=== PATIENT | male | born 1945 | race Caucasian/White ===

== ENCOUNTER 2019-09-21 11:09 | Outpatient (CLI) | payer MEDICARE, SELFPAY ==
[2019-09-21 11:51] LABS: Basophils Percent Auto 0.2 % (0.2-1.2); Eosinophils Absolute Auto 0.2 K/mm3 (0-0.3); Hematocrit 36.8 % (42.0-52.0); Hemoglobin 12.7 g/dL (14.0-18.0); Immature Granulocyte Absolute 0.01 K/mm3 (0.00-0.031); Immature Granulocyte Percent A 0.2 % (0-0.5); Lymphocytes Absolute Auto 2.57 K/mm3 (0.9-3.2); Lymphocytes Percent Auto 57.8 % (18.3-44.2); Mean Corpuscular HGB Conc 34.5 g/dl (32-36); Mean Corpuscular Hemoglobin 39.6 pg (26-34); Mean Corpuscular Volume 114.6 fl (80-100); Mean Platelet Volume 11.9 fl (7.4-10.4); Monocytes Absolute Auto 0.5 K/mm3 (0.1-0.6); Neutrophils Absolute Auto 1.2 K/mm3 (1.3-6.7); Neutrophils Percent Auto 26.8 % (45.5-73.1); Platelet Count Result 147 k/mm3 (150-375); Red Blood Count 3.21 M/mm3 (4.6-6.20); Red Cell Distribution Width 14.8 % (11.5-14.5); White Blood Count 4.5 K/mm3 (4.5-10.0)
[2019-09-21 12:00] LABS: Prothrombin Time 13.1 Seconds (11.1-14.7)
[2019-09-21 12:05] LABS: Alanine Aminotransferase 25 U/L (4-50); Albumin Level 4.5 g/dL (3.5-5.1); Alkaline Phosphatase 52 U/L (38-126); Aspartate Amino Transferase 28 U/L (17-59); Bilirubin,Total 0.6 mg/dL (0.2-1.3); Blood Urea Nitrogen 17 mg/dL (9-20); Carbon Dioxide 27 mmol/L (22-30); Chloride 105 mmol/L (98-107); Estimated Glomerular Filt Rate 59; Glucose 121 mg/dL (75-110); Potassium 4.3 mmol/L (3.4-5.0); Sodium 141 mmol/L (137-145)
== END 2019-09-21 11:10 | disposition home or self-care (01) ==
LOC: ANHLAB 11:18
PROVIDERS: PCP Family Medicine; Visit Provider Internal Medicine Cardiovascular Disease
DX: Z01.810 Encounter for preprocedural cardiovascular examination (principal); I25.119 Atherosclerotic heart disease of native coronary artery with unspecified angina pectoris; R06.00 Dyspnea, unspecified
CPT/HCPCS: 36415; 80053; 85025; 85610

== ENCOUNTER 2019-09-23 06:08 | Outpatient (CLI) | payer MEDICARE, SELFPAY ==
[2019-09-23 17:27] LABS: SARS-CoV-2 RNA PCR Negative
== END 2019-09-23 06:09 | disposition home or self-care (01) ==
LOC: ANHCOVIDDT 06:08
PROVIDERS: PCP Family Medicine; Visit Provider Internal Medicine Cardiovascular Disease
DX: Z01.812 Encounter for preprocedural laboratory examination (principal); Z11.59 Encounter for screening for other viral diseases
CPT/HCPCS: 87635; C9803; U0003

== ENCOUNTER 2019-09-26 06:53 | Day surgery (SDC) | payer MEDICARE, SELFPAY ==
[2019-09-25 18:24] VITALS: BMI 28.0
[2019-09-26] VITALS (15 sets, daily range): BP systolic 112–154; BP diastolic 62–83; PULSE 54–66; RESP 14–18; TEMP 36.7; O2SAT 95–100
--- NOTE | 2019-09-26 09:13 | WPDMODSED ---
Moderate Sedation Note-Pt Data Patient Data Allergies Allergy/AdvReac Type Severity Reaction Status Date / Time niacin AdvReac Nausea and Verified 09/25/19 18:23 Vomiting quinine AdvReac Dizziness Verified 09/25/19 18:23 Home Medications Medication Instructions Recorded Confirmed Type acetaminophen [Tylenol] 325 mg PO ONCE PRN 09/25/19 09/25/19 History alprazolam [Xanax] 0.5 mg PO TID 09/25/19 09/26/19 History aspirin 81 mg PO DAILY 09/25/19 09/26/19 History atorvastatin [Lipitor] 40 mg PO HS 09/25/19 09/26/19 History clopidogrel [Plavix] 75 mg PO DAILY 09/25/19 09/26/19 History folic acid 0.8 mg PO DAILY 09/25/19 09/25/19 History isosorbide mononitrate 60 mg PO DAILY 09/25/19 09/26/19 History losartan [Cozaar] 50 mg PO DAILY 09/25/19 09/26/19 History metoprolol tartrate [Lopressor] 50 mg PO Q12H 09/25/19 09/26/19 History mvoaukyi-qoz-ZG-lycopen-lutein 1 tablet PO DAILY 09/25/19 09/26/19 History [Centrum Silver] pantoprazole [Protonix] 40 mg PO QAM 09/25/19 09/26/19 History vitamin E 400 unit PO DAILY 09/25/19 09/26/19 History Current Medications: Active Medications Sodium Chloride (Normal Saline Iv) 500 mls @ 100 mls/hr IV CONT .Q5H [facility] Sedation/Anesthesia: No previous sedation/anesthesia problems (including family history). [facility] Social History Social History Smoking status: Former smoker Tobacco type: cigarettes Second hand tobacco smoke exposure: Yes Alcohol intake: former Substance use: never Living arrangements: with family Gender identity (if verbalized by the patient): Male Spiritual care concerns: No Mod Sed Physical Exam Physical Exam Pre Procedural Exam: Normal: Airway Hours since solid foods: 10 Hours since liquid intake: 10 Internal Medicine - PN: Obj Da Vital Signs Vital Signs: Vital Signs - 24 hr 09/26/19 07:13 Pulse Rate 59 L Respiratory Rate 17 Blood Pressure 152/80 H Pulse Oximetry 97 Meds/Results Medications: Active Medications Generic Name Dose Route Start Last Admin Trade Name Freq PRN Reason Stop Dose Admin Sodium Chloride 500 mls @ 100 mls/hr 09/26/19 06:35 Normal Saline Iv IV CONT .Q5H [facility] ASA Classification/Sedation ASA Classification/Sedation Risks: Risks, benefits and alternatives explained and patient/family accepted plan for sedation. Patient re-evaluated immediately prior to sedation.
--- NOTE | 2019-09-26 09:13 | WPDHPUPDATE1 ---
History and Physical Update Update Date/Time: 09/26/19 09:13 History and Physical has been reviewed, including an updated exam of the patient. There are NO changes in the patient's condition. Risks, benefits, and alternatives have been discussed and questions answered. Patient agrees to proceed with procedure.
--- NOTE | 2019-09-26 10:15 | SUR.PHASEII ---
BEGIN PHASE II RECOVERY. RETURNS TO [facility] S/P L/RHC W/ DR. DYER. AWAKE AND ALERT ON ARRIVAL. DENIES PAIN OR SOB. RFA PUNCTURE SITE CLOSED W/ ANGIOSEAL. 7FR VENOUS SHEATH SUTURED IN PLACE IN RFV. R. GROIN SOFT, NONTENDER, NO BLEEDING OR HEMATOMA NOTED. GUAZE DRESSING C/D/I OVER PUNCTURE SITES R. GROIN. R. PEDAL PULSE STRONG. SENSATION, MOVEMENT, COLOR R. FOOT WNL. REVIEWED BEDREST ACTIVITY RESTRICTIONS W/ PT AND . VOICED UNDERSTANDING OF ALL. MONITOR SB/SR W/ BBB. VSS. WILL CONTINUE TO MONITOR.
--- NOTE | 2019-09-26 10:29 | WPDCARDPROC ---
Cardiac Cath Procedure Note Date of procedure:: 09/26/19 Performing physician:: Jordan Reid MD Procedure Procedure note:: RIGHT AND LEFT HEART CATHETERIZATION AND PERCUTANEOUS CORONARY INTERVENTION REPORT DATE OF PROCEDURE: 09/26/2019 INDICATION FOR PROCEDURE: Worsening shortness of breath, known CAD, history of PCI/ stent placements BRIEF CLINICAL HISTORY: 74-year-old male with known CAD, history of PCI/ stent placement ( 4.0 x 16 mm, 3.0 x 16 mm overlapping stents in the proximal LAD on 05/19/2016), PAD, chronic left bundle-branch block, hypertension, dyslipidemia. Patient was referred by Dr. Landeros for right and left heart catheterization in the setting of worsening shortness of breath. Benefits and risks of the procedure were discussed with the patient in depth, and informed consent was obtained prior to the procedure. Risks of the procedure include but are not limited to vascular complications including groin hematoma, retroperitoneal bleed, vessel perforation; periprocedural FL, cardiac arrhythmias, stroke, contrast induced nephropathy, and . After discussing all the benefits, risks and alternatives, patient was willing to proceed with the procedure. PROCEDURES PERFORMED: 1. Left heart catheterization- Selective left and right coronary angiogram; left ventriculogram and hemodynamic assessment 2. Right heart catheterization with hemodynamic assessment 3. Percutaneous coronary intervention- Intravascular ultrasound (IVUS) of distal left main 4. Selective right common femoral angiogram and deployment of Angio-Seal hemostatic device 5. Moderate sedation-CPT code 82262 MODERATE SEDATION: Midazolam 2 mg; fentanyl 50 mcg. Start time 0920 , Stop time 1000 ; Total [id number] time 40 minutes; Sharon Cooney RN was trained observer for moderate sedation. ACCESS SITE: Right common femoral artery PROCEDURE NOTE: After obtaining informed consent, patient was brought to catheterization lab and prepped and draped in a usual sterile manner. After local anesthesia with lidocaine, right common femoral artery access was taken with micropuncture needle followed by insertion of a 5 Samoan sheath. Right common femoral venous access were taken with micropuncture needle followed by insertion of a 7 Samoan sheath. Right heart catheterization was performed using C Ladson-Sharmila catheter under fluoroscopic guidance. Pressures were measured in the RA, RV, pulmonary artery and pulmonary capillary. O2 saturations were taken from RA, RV, pulmonary artery, and femoral artery. After completion of right heart catheterization, attention was shifted to the left heart catheterization. Selective left and right coronary angiogram was performed using 5 Samoan JL4 and JR4 catheters respectively. Orthogonal views were taken. Next, a 5 Samoan pigtail catheter was advanced in the LV cavity and was flushed with normal saline. LV pressure measurement was performed. After this, left ventriculogram was performed. The catheter was flushed again, and gradient across the aortic valve was measured on the pullback of the catheter. Selective right common femoral angiogram was performed after PCI followed by successful deployment of Angio-Seal vascular closure device. Patient tolerated procedure well without any immediate procedure related complications. FINDINGS: LEFT HEART CATHETERIZATION: LEFT MAIN CORONARY: The left main coronary artery is a medium to large caliber vessel with about 30% stenosis in the mid segment and high-grade 70-80% stenosis in the distal most segment before vessel bifurcates into LAD and left circumflex branches. The stenosis was best visualized in the VENTURA 29 and caudall 18 projection. As described below, the distal left main stenosis was confirmed on the intravascular ultrasound. LEFT ANTERIOR DESCENDING ARTERY: Multiple stents are seen in the proximal LAD which are patent without significant normal loss. There is mild 20-40% stenosis distal
--- NOTE | 2019-09-26 12:12 | SUR.PHASEII ---
BEDREST X 2 HOURS COMPLETED POST ANGIOMAX RECEIVED IN CCL DURING R/LHC. 7FR VENOUS SHEATH PULLED INTACT PER PROTOCOL FROM R. FEM VEIN AFTER SUTURE REMOVED. FIRM MANUAL PRESSURE TO SITE TO BE HELD UNTIL HEMOSTASIS. TOLERATED WELL. VSS.
--- NOTE | 2019-09-26 12:27 | SUR.PHASEII ---
HEMOSTASIS ACHIEVED TO R. FEM VEIN PUNCTURE SITE AFTER 15 MINUTES MANUAL PRESSURE HOLD. TOLERATED WELL. SITE SOFT, NONTENDER. NO BLEEDING OR OOZE NOTED. VERY SMALL BRUISE NOTED AT PUNCTURE SITE. SITE DRESSED W/ FOLDED 4X4 AND TEGADERM. R. FEM ARTERIAL SITE REMAINS SOFT, NONTENDER. NO BLEEDING OR HEMATOMA NOTED. ARTERIAL SITE DRESSED W/ STAT SEAL AND TEGADERM. CONTINUED BEDREST ACTIVITY RESTRICTIONS REVIEWED W/ PT. AND . WILL CONTINUE BEDREST S/P R. FEM VEIN SHEATH PULL X 1 HOUR. VSS. WILL CONTINUE TO MONITOR.
--- NOTE | 2019-09-26 13:30 | SUR.PHASEII ---
BEDREST X 1 HOUR POST R. FEM VENOUS SHEATH PULL COMPLETE. UP TO DANGLE BEDSIDE, AMBULATED TO BATHROOM TO VOID WITHOUT DIFFICULTY, RETURNED TO RECLINER CHAIR AT BEDSIDE. TOLERATED WELL. R. GROIN ARTERIAL AND VENOUS PUNCTURE SITES REMAIN SOFT, NONTENDER, NO BLEEDING OR HEMATOMA NOTED. DRESSING C/D/I. R. PEDAL PULSE REMAINS STRONG. VSS. WILL CONTINUE TO MONITOR. LUNCH TRAY SERVED.
--- NOTE | 2019-09-26 14:58 | SUR.PHASEII ---
R. GROIN ARTERIAL AND VENOUS PUNCTURE SITES W/ C/D/I DRESSING. STAT SEAL NOTED OVER ANGIOSEAL SITE TO R. FEM. SITES WITHOUT BLEEDING OR HEMATOMA. SITES SOFT, NONTENDER. R. PEDAL PULSE STRONG; COLOR, TEMP, MOVEMENT, SENSATION R. FOOT WNL FOR PT. DRESSED FOR DISCHARGE HOME. VSS. DENIES PAIN OR SOB. DISCHARGE INSTRUCTIONS, WOUND CARE, FOLLOW UP CARE INSTRUCTIONS GIVEN AND REVIEWED W/ PT. BY MARIAN DEGROOT RN. DISK GIVEN TO PT. TO TAKE TO CARDIAC SURGEON APPOINTMENT. QUESTIONS ANSWERED. VOICED UNDERSTANDING OF ALL.
--- NOTE | 2019-09-26 15:00 | SUR.PHASEII ---
END PHASE II RECOVERY. DISCHARGED HOME, OUT VIA WC TO 'S WAITING CAR, WITH ALL PERSONAL BELONGINGS AND DISCHARGE PACKET AND PROCEDURE DISK. VOICES NO C/O. NO DISTRESS NOTED.
== END 2019-09-26 15:00 | disposition home or self-care (01) ==
PROVIDERS: PCP Family Medicine; Visit Provider Internal Medicine Cardiovascular Disease
PROC: 4A023N8 Measurement of Cardiac Sampling and Pressure, Bilateral, Percutaneous Approach (ICD-10-PCS; CPT 93453; principal; 2019-09-26 08:30)
DX: I25.10 Atherosclerotic heart disease of native coronary artery without angina pectoris (principal); R06.02 Shortness of breath; I10 Essential (primary) hypertension; E78.5 Hyperlipidemia, unspecified; I44.7 Left bundle-branch block, unspecified; Z95.5 Presence of coronary angioplasty implant and graft; I49.3 Ventricular premature depolarization; Z79.82 Long term (current) use of aspirin; Z79.02 Long term (current) use of antithrombotics/antiplatelets; Z87.891 Personal history of nicotine dependence
CPT/HCPCS: 92978; 93460; C1753; C1760; C1769; C1887; C1894; G0269; J0583; J1644; J2250; J3010; J7040

== ENCOUNTER 2019-10-27 13:27 | Outpatient (CLI) | payer MEDICARE, SELFPAY ==
--- NOTE | ~2019-10-27 | US_ITS ---
EXAMINATION: US carotid duplex BI DATE: 10/27/2019 14:10 INDICATION: Carotid stenosis TECHNIQUE: Grayscale, color Doppler, and pulsed Doppler images of the cervical carotid arteries were obtained. The degree of vessel stenosis is placed in one of the following categories: normal, <50%, 5 0-69%, >=70% but less than near-occlusion, near-occlusion, or total occlusion. Note that percent sten osis relative to normal distal artery lumen diameter is indirectly measured from velocity measurement s as described by Tyron, et al. Radiology 2003; 229:340-346. COMPARISON: 12/20/2013 FINDINGS: RIGHT: The right common carotid artery (CCA) peak systolic velocity (PSV) is 99 cm/s. The right internal car otid artery (ICA) PSV is 204 cm/s. The right ICA end-diastolic velocity (EDV) is 54 cm/s. The right I CA/CCA PSV ratio is 2.1. Grayscale and color Doppler images yield an estimate of 50-69% diameter redu ction from plaque in the ICA. The external carotid artery (ECA) PSV is 126 cm/s. There is antegrade f low in the right vertebral artery. LEFT: The left CCA PSV is 103 cm/s. The left ICA PSV is 129 cm/s. The left ICA EDV is 27 cm/s. The left ICA /CCA PSV ratio is 1.3. Grayscale and color Doppler images including secondary Doppler criteria yield an estimate of <50% diameter reduction from plaque in the ICA. The ECA PSV is 135 cm/s. There is ante grade flow in the left vertebral artery. IMPRESSION: 1. 50-69% stenosis in the right internal carotid artery. 2. <50% stenosis in the left internal carotid artery. Reviewed, dictated and finalized at location A.
== END 2019-10-27 13:28 | disposition home or self-care (01) ==
LOC: ANHIMG 13:37
PROVIDERS: PCP Family Medicine
DX: I65.23 Occlusion and stenosis of bilateral carotid arteries (principal)
CPT/HCPCS: 93880

== ENCOUNTER 2019-11-17 11:03 | Inpatient (IN) | payer MEDICARE, SELFPAY ==
[2019-11-17] VITALS (12 sets, daily range): BP systolic 82–144; BP diastolic 52–90; PULSE 78–84; RESP 15–22; TEMP 36.9–39.3; O2SAT 94–98; BMI 26.5
--- NOTE | ~2019-11-17 | XR_ITS ---
EXAMINATION: XR chest 1V portable INDICATION: Cough, COVID 19 TECHNIQUE: Portable AP chest at 0605 hours COMPARISON: 11/17/2019 FINDINGS: Airspace opacities of the mid and lower lung zones persist with slight improvement. There i s no pleural effusion or pneumothorax. Median sternotomy wires and mediastinal surgical clips are see n, likely from prior coronary artery bypass grafting. The heart size is normal. IMPRESSION: 1. Improving airspace opacities of the mid and lower lung zones, consistent with atelectasis versus p neumonia. Reviewed, dictated and finalized at location A. IMPRESSION: 1. Improving airspace opacities of the mid and lower lung zones, consistent wit h atelectasis versus pneumonia.
--- NOTE | ~2019-11-17 | CT_ITS ---
EXAMINATION: CT brain wo con EXAM DATE: 11/17/2019 12:08 INDICATION: Weakness, decreased appetite 3-4 days. TECHNIQUE: Spiral CT of the head was performed without contrast. Axial, coronal and sagittal images were reviewed. The dose-length product (DLP) for this examination was 681.00 mGy-cm. The exposure w as tailored according to patient size, and iterative reconstruction (ASIR) was used as additional dos e reduction technique. There is no prior study for comparison. FINDINGS: There is no acute intraparenchymal hemorrhage. No evidence of intraparenchymal brain mass lesion. No evidence of acute infarction. Please note that initial head CT has limited sensitivity f or small or acute infarctions. There is mild periventricular and subcortical hypodensity, nonspecific but probably related to small vessel ischemic disease. There is mild prominence of the sulci and v entricles related to cerebral atrophy. There is intracranial carotid arteriosclerosis. There are n o extra-axial collections. There is no mass effect or midline shift. Patient has had bilateral ocul ar lens surgery. Soft tissue is unremarkable. The visualized sinuses and mastoid air cells are well aerated. IMPRESSION: 1. No acute intracranial findings. 2. Chronic age related findings. Reviewed, dictated and finalized at location A.
--- NOTE | ~2019-11-17 | XR_ITS ---
EXAMINATION: XR chest 1V portable DATE: 11/17/2019 12:06 INDICATION: Cough. TECHNIQUE: A single frontal view of the chest was obtained. COMPARISON: Chest 2 views 07/07/2016, chest CT 02/18/2017 FINDINGS: There are mild airspace opacities in the mid and lower lung zones. No pleural effusion or p neumothorax. The heart size is normal. Median sternotomy wires and mediastinal surgical clips are see n, likely from prior coronary artery bypass grafting. IMPRESSION: 1. Mild airspace opacities in the mid and lower lung zones, consistent with atelectasis versus pneumo [place]. Reviewed, dictated and finalized at location B. IMPRESSION: 1. Mild airspace opacities in the mid and lower lung zones, consistent with ate lectasis versus pneumonia.
--- NOTE | 2019-11-17 11:30 | ECG_ITS ---
Measurements Intervals [place] Rate: 78 P: 35 WI: 185 QRS: -23 QRSD: 149 T: 142 QT: 426 QTc: 486 Interpretive Statements SINUS RHYTHM LEFT BUNDLE BRANCH BLOCK BASELINE ARTIFACT- II ABNORMAL ECG Electronically Signed On 11-17-2019 14:21:34 CDT by Andrei Hadley D.O.
--- NOTE | 2019-11-17 11:41 | ED.GENADULT ---
HPI - General Adult General Chief complaint: Weakness Stated complaint: Weakness Time Seen by Provider: 11/17/19 11:20 Source: RN notes reviewed History of Present Illness HPI narrative: Patient presents emergency department from home for weakness. Patient states he had progressive weakness over the past 4 days. He states that this time is having difficulty getting up and ambulating secondary to his weakness. Patient states he did have a fever of 101 4 days ago but no fever since then. He denies having any rhinorrhea cough abdominal pain nausea vomiting diarrhea or any other symptoms. Patient is postop CABG surgery from October 31 done at [facility]. Related Data Home Medications Medication Instructions Recorded Confirmed Centrum Silver 1 tablet PO DAILY 09/25/19 09/26/19 acetaminophen [Tylenol] 325 mg PO ONCE PRN 09/25/19 09/25/19 alprazolam [Xanax] 0.5 mg PO TID 09/25/19 09/26/19 aspirin 81 mg PO DAILY 09/25/19 09/26/19 atorvastatin [Lipitor] 40 mg PO HS 09/25/19 09/26/19 folic acid 0.8 mg PO DAILY 09/25/19 09/25/19 metoprolol tartrate [Lopressor] 50 mg PO Q12H 09/25/19 09/26/19 pantoprazole [Protonix] 40 mg PO QAM 09/25/19 09/26/19 amiodarone 11/17/19 apixaban [Eliquis] mg 11/17/19 docusate sodium [Colace] 100 mg PO BID 11/17/19 polyethylene glycol 3350 [Miralax] 17 g PO DAILY 11/17/19 potassium chloride meq PO 11/17/19 Allergies Allergy/AdvReac Type Severity Reaction Status Date / Time niacin AdvReac Nausea and Verified 11/17/19 11:42 Vomiting quinine AdvReac Dizziness Verified 11/17/19 11:42 Review of Systems Review of Systems: Narrative: Gen.: Denies fevers or chills Eyes: Denies eye pain or visual change ENT: Denies congestion Respiratory: Denies shortness of breath or cough CV: Denies chest pain or palpitations GI: Denies abdominal pain nausea, emesis or diarrhea Musculoskeletal: Denies back pain or muscle pain Neuro: Denies numbness, tingling, reports weakness Skin: Denies rash Except as documented, all other systems reviewed and negative [facility] Past Medical History Medical History (Updated 11/17/19 @ 15:27 by Chester Fong DO) Coronary artery disease Social History Social History Smoking status: Former smoker Tobacco type: cigarettes Second hand tobacco smoke exposure: Yes Alcohol intake: former Substance use: never Gender identity (if verbalized by the patient): Male Spiritual care concerns: No Exam Narrative: Exam Narrative: APPEARANCE: No acute distress, nontoxic, resting in bed EYES: EOMI, Perrl HEENT: Normocephalic, atraumatic, OMM RESPIRATORY: No respiratory distress Clear to auscultation bilaterally with no rhonchi wheezing or rales. CARDIOVASCULAR: Regular rate and rhythm without murmurs rubs or gallops. ABDOMINAL: Soft, nontender, nondistended, no rebound or guarding MUSCULOSKELETAl: Moves all extremities. No clubbing, cyanosis or edema. NEURO: Awake and alertx 3. Following commands, speech normal, no focal deficits SKIN:: Warm, dry. No rashes lesions or abrasions PSYCHIATRIC: Normal affect/mood, Course Course Emergency Course: Discussed with Dr. Marcus presentation work-up. Agrees with consult at this time Discussed with MICHAEL Hassan for Dr. Blackwell presentation work-up. Agrees with admission Discussed with patient and family results of workup and diagnosis. Discussed need for admission. Patient and family understand and agree to current treatment plan Vital Signs Vital signs: Vital Signs Temperature 98.4 F 11/17/19 11:25 Pulse Rate 81 11/17/19 11:25 Respiratory Rate 22 H 11/17/19 11:25 Blood Pressure 120/61 11/17/19 11:25 Pulse Oximetry 96 11/17/19 11:25 Temperature 98.4 F 11/17/19 11:25 Pulse Rate 82 11/17/19 13:57 Respiratory Rate 18 11/17/19 13:57 Blood Pressure 142/60 H 11/17/19 13:57 Pulse Oximetry 98 11/17/19 13:57 Medical Decision
[2019-11-17 11:58] LABS: Basophils Percent Auto 0.4 % (0.2-1.2); Eosinophils Percent Auto 1.6 % (0-4.4); Hematocrit 30.9 % (42.0-52.0); Hemoglobin 10.2 g/dL (14.0-18.0); Immature Granulocyte Absolute 0.02 K/mm3 (0.00-0.031); Immature Granulocyte Percent A 0.8 % (0-0.5); Lymphocytes Absolute Auto 0.88 K/mm3 (0.9-3.2); Lymphocytes Percent Auto 34.4 % (18.3-44.2); Mean Corpuscular Hemoglobin 32.1 pg (26-34); Mean Corpuscular Volume 97.2 fl (80-100); Mean Platelet Volume 11.4 fl (7.4-10.4); Monocytes Absolute Auto 0.2 K/mm3 (0.1-0.6); Monocytes Percent Auto 8.2 % (2.6-8.5); Neutrophils Absolute Auto 1.4 K/mm3 (1.3-6.7); Neutrophils Percent Auto 54.6 % (45.5-73.1); Platelet Count Result 183 k/mm3 (150-375); Red Blood Count 3.18 M/mm3 (4.6-6.20); Red Cell Distribution Width 18.8 % (11.5-14.5); White Blood Count 2.6 K/mm3 (4.5-10.0)
[2019-11-17 12:13] LABS: Lactic Acid Reflex 1.3 mmol/L (0.7-2.1)
[2019-11-17 12:15] LABS: Alanine Aminotransferase 31 U/L (4-50); Albumin Level 3.6 g/dL (3.5-5.1); Alkaline Phosphatase 94 U/L (38-126); Anion Gap 9 mmol/L (8-16); Aspartate Amino Transferase 36 U/L (17-59); Bilirubin,Total 0.9 mg/dL (0.2-1.3); Blood Urea Nitrogen 15 mg/dL (9-20); Carbon Dioxide 25 mmol/L (22-30); Chloride 97 mmol/L (98-107); Estimated CRCL calculation 67 ml/min; Estimated Glomerular Filt Rate > 60; Glucose 130 mg/dL (75-110); Potassium 4.8 mmol/L (3.4-5.0); Sodium 131 mmol/L (137-145)
[2019-11-17 12:18] LABS: INR 1.3; Prothrombin Time 15.6 Seconds (11.1-14.7)
[2019-11-17 12:19] LABS: Partial Thromboplastin Time 39.5 SECONDS (22.3-36.8)
[2019-11-17 13:14] LABS: Add Urine Microscopic? YES; Appearance Urine Clear (Clear); Bilirubin Urine Negative (Negative); Blood Urine Negative (Negative); Color Urine Yellow (Yellow); Glucose Urine UA Negative (Negative); Ketones Urine Negative (Negative); Leukocyte Esterase Ur Negative LEU/UL (Negative); Mucus Urine Rare /lpf; Nitrate Urine Negative (Negative); Protein Urine 1+ mg/dL (Negative); WBC Urine 0-3 /hpf
[2019-11-17] MEDS: SODIUM CHLORIDE 0.9% IV 1,000 ML 999 ML IV CONT (13:40)
--- NOTE | 2019-11-17 16:46 | PC.NURSE ---
This patient, Aditya Call, was admitted to Medical Room 248-. Patient/family oriented to hospital policies and general routines including ID bracelet, bed and alarms, visiting hours, pain management, procedures, bathroom and other care routines, personal items, smoking policy, room service/diet, and visiting hours. Valuables list has been completed. Information on how to activate the Rapid Response Team has been discussed. Patient/Family are encouraged to report perceived risks to care and to ask questions if they do not understand what they are told or what they should do.
[2019-11-17] MEDS: SODIUM CHLORIDE 0.9% IV 1,000 ML 80 ML IV CONT (17:01)
--- NOTE | 2019-11-17 17:37 | PC.NURSE ---
Patient's and TEJA Saba at bedside and discussed need to record patient's home medications. Per she did not bring list with her to hospital. Will have to obtain home medication reconciliation once obtains list at home.
--- NOTE | 2019-11-17 17:54 | PM.CNCAR ---
Assessment and Plan Additional Plan 74-year-old white male with symptomatic orthostatic hypotension following recent coronary artery bypass grafting. According to the records that I do have he is known to have good left ventricular function. Following surgery he was discharged on furosemide which was stopped about 2-3 days ago because of the onset of these symptoms he has also taking metoprolol and presumably taking amiodarone for postop atrial fibrillation. Tonight I would recommend try to rehydrate him with intravenous normal saline which is already being done. I would hold his beta-teto for now and discontinue the amiodarone altogether since he may not need it anymore to maintain sinus rhythm. Once he is no longer orthostatic I would like to try to or resume some beta-teto possibly at a lower dose. Obviously cannot be discharged home until he is able to stand and ambulate without symptomatic hypotension Castillo Marcus MD [facility] History of Present Illness History of Present Illness Consult date/time: Date of service:11/17/19 17:54 Consult reason: hypotension Reason For Visit: orthostatic hypotension/weakness Narrative: This is a 74-year-old man who is not known to me prior to this consultation. Apparently he is a longstanding patient of our practice and sees Dr. Landeros regarding his coronary artery disease. The patient was admitted to the hospital after being seen in the emergency room this afternoon reporting severe weakness and lightheadedness upon arising and inability to get a bit of stand up for a couple of days before coming in. Not having any specific symptoms of chest pain or any other obvious cardiac symptoms. In the emergency department he was found to be significantly orthostatic with systolic blood pressures in the 140s supine and declining into the 70s upon standing. According to the records the patient was just discharged from the hospital at [facility] last week after having coronary artery bypass surgery performed. He has a history of coronary artery disease for a number of years and previously underwent stenting of his LAD at this hospital by Dr. Reid. apparently he had ex accelerating recurrent ischemic symptoms and in September of this year underwent follow-up angiography here at this hospital and was found to have significant left main stenosis and for that reason he was referred for surgery at [facility]. He apparently received a 2 vessel bypass operation from what he tells me he was in the hospital for about a week and discharged in reasonably good condition. He was discharged on furosemide which is not a normal drug for him and he was also discharged on amiodarone presumably because he had some postop atrial fibrillation. As I dictate this I do not have access to the [facility] chart. His electrocardiogram in the hospital today shows sinus rhythm with left bundle branch block and in this setting I am seeing him in consultation. The report from the cardiac catheterization in September that was done here at this hospital demonstrated relatively good left ventricular systolic function prior to surgery. In addition to the medications described above he takes metoprolol 50 mg q.12 hours chronically. Review of Systems Constitutional: Constitutional: Reports weakness Comments: Lightheadedness upon arising as detailed above Eyes: Eyes: Reports no additional eye complaints ENT: Reports system reviewed and no additional complaints, except as documented Cardiovascular: Cardiovascular: Reports as per HPI Respiratory: Respiratory: Reports no additional respiratory complaints Gastrointestinal: Gastrointestinal: Reports no additional gastrointestinal complaints Musculoskeletal: Musculoskeletal: Reports no additional musculoskeletal complaints Integumentary/Breasts: Skin/Breast: Reports system reviewed and no additional complaints, except as docu Neurologic: Reports as per HPI Endocrine: Endocrine
--- NOTE | 2019-11-17 23:29 | PM.IMHP ---
H&P: HPI History of Present Illness Date/Time: 11/17/19 23:29 Chief complaint: orthostatic hypotension/weakness Narrative: Aditya Call is a 74 year old male Who has been complaining of some generalized weakness for approximately 4 days. The patient stated about 4 days ago he did have of fever at that time he had fever and chills and cough that was productive. The patient stated that he has not been using his incentive spirometer because his been causing him too much pain. The patient did have a 2 vessel CABG at [facility] approximately on October 31. His been seen here by the [facility] more specifically Dr. joseph and . The patient stated that he was very weak today and nearly passed out. The patient stated he was too weak to get out of bed so he is mostly stated bed. He states that he has been having a lot of discomfort since he had his open heart surgery. His fever was 101 4 days ago and he stated that his Lasix was stopped and that he has not noticed a fever since then. Patient was noted to have orthostatic hypotension. Chest x-ray was read as mild airspace opacities in the mid lower lung zones consistent with atelectasis versus pneumonia. Head CT no acute intracranial findings chronic age-related findings. His found to be in sinus rhythm. Who is admitted for weakness and orthostatic hypotension. I had requested that the heart care group see the patient as they have seen the patient in the past. Dr. Marcus for his seen the patient already and made some suggestions. Patient was started on IV fluids. The patient developed a temperature of 102.7? this evening. I started him on some vancomycin and some IV Tylenol. His temperature has gone down to around 100 now. I then added Zosyn for possible hospital acquired pneumonia. Since he recently was hospitalized this month. I spoke to my collaborative who suggested that the patient may need to be returned back to [facility]. the patient is okay with staying here for now. His H&H is down to 10.2 and 30.9. Liver enzymes are within normal limits. Lactic acid is within normal limits. Date of service 11/17/2019 Review of Systems Review of Systems: All systems reviewed & are unremarkable except as noted in HPI and below Constitutional: Constitutional: Reports as per HPI and Reports no additional constitutional complaints Eyes: Eyes: Reports as per HPI and Reports no additional eye complaints ENT: Reports system reviewed and no additional complaints, except as documented and Reports Normal hearing present Cardiovascular: Cardiovascular: Reports no additional cardiovascular complaints Respiratory: Respiratory: Reports no additional respiratory complaints and Reports no additional respiratory complaints Gastrointestinal: Gastrointestinal: Reports as per HPI and Reports no additional gastrointestinal complaints Musculoskeletal: Musculoskeletal: Reports no additional musculoskeletal complaints Integumentary/Breasts: Skin/Breast: Reports system reviewed and no additional complaints, except as docu and Reports as per HPI Neurologic: Reports system reviewed and no additional complaints, except as documented, Reports as per HPI and Reports Normal hearing present Psychiatric: Psychiatric: Reports no additional psychiatric complaints and Reports as per HPI Endocrine: Endocrine: Reports no additional endocrine complaints Hematologic/Lymphatic: Hematologic/Lymphatic: Reports no additional hematologic/lymphatic complaints Allergic/Immunologic: Allergic/Immunologic: Reports no additional allergic/immunologic complaints PMFSH Past Medical History Medical History (Updated 11/17/19 @ 23:54 by Sonya Freeman NP) Anxiety Chronic GERD Coronary artery disease 2 vessel CABG October of this yearin 2 cardiac stents 2017 Hyperlipidemia Hypertension Surgical History Surgical History (Updated 11/17/19 @ 23:54 by Sonya Freeman NP) H/O heart artery s
[2019-11-18] VITALS (9 sets, daily range): BP systolic 102–139; BP diastolic 53–63; PULSE 74–87; RESP 16–22; TEMP 36.1–38.6; O2SAT 95–99
[2019-11-18] MEDS: ATORVASTATIN 40 MG TABLET PO ×2 (01:06→20:40)
[2019-11-18 06:04] LABS: Basophils Percent Auto 0.5 % (0.2-1.2); Eosinophils Absolute Auto 0.1 K/mm3 (0-0.3); Eosinophils Percent Auto 4.7 % (0-4.4); Hematocrit 28.6 % (42.0-52.0); Hemoglobin 9.4 g/dL (14.0-18.0); Immature Granulocyte Absolute 0.03 K/mm3 (0.00-0.031); Immature Granulocyte Percent A 1.4 % (0-0.5); Lymphocytes Absolute Auto 0.72 K/mm3 (0.9-3.2); Lymphocytes Percent Auto 33.6 % (18.3-44.2); Mean Corpuscular HGB Conc 32.9 g/dl (32-36); Mean Corpuscular Hemoglobin 32.2 pg (26-34); Mean Corpuscular Volume 97.9 fl (80-100); Mean Platelet Volume 11.8 fl (7.4-10.4); Monocytes Absolute Auto 0.2 K/mm3 (0.1-0.6); Monocytes Percent Auto 7.9 % (2.6-8.5); Neutrophils Absolute Auto 1.1 K/mm3 (1.3-6.7); Neutrophils Percent Auto 51.9 % (45.5-73.1); Platelet Count Result 150 k/mm3 (150-375); Red Blood Count 2.92 M/mm3 (4.6-6.20); Red Cell Distribution Width 18.6 % (11.5-14.5); White Blood Count 2.1 K/mm3 (4.5-10.0)
[2019-11-18 06:10] LABS: Anion Gap 6 mmol/L (8-16); Blood Urea Nitrogen 13 mg/dL (9-20); Calcium 7.7 mg/dL (8.4-10.2); Carbon Dioxide 26 mmol/L (22-30); Chloride 102 mmol/L (98-107); Estimated CRCL calculation 67 ml/min; Estimated Glomerular Filt Rate > 60; Glucose 117 mg/dL (75-110); Potassium 4.2 mmol/L (3.4-5.0); Sodium 134 mmol/L (137-145)
[2019-11-18] MEDS: PANTOPRAZOLE 40 MG TABLET PO (08:11)
[2019-11-18] MEDS: APIXABAN 5 MG TABLET PO ×2 (08:12→17:18)
[2019-11-18] MEDS: CYANOCOBALAMIN 500 MCG TABLET PO (08:12)
[2019-11-18] MEDS: FOLIC ACID 0.4 MG TABLET 0.8 MG PO (08:12)
[2019-11-18] MEDS: MULTIVITAMINS /C LUTEIN (CENTRUM SILVER) TABLET *BKC 1 TAB PO (08:12)
[2019-11-18] MEDS: polyethylene glycoL 3350 17 GM POWD.PACK PO (08:12)
[2019-11-18] MEDS: ASPIRIN 81 MG CHEWABLE TABLET PO (08:12)
[2019-11-18] MEDS: CYANOCOBALAMIN 1,000 MCG TABLET 2000 MCG PO (08:12)
[2019-11-18] MEDS: DOCUSATE SODIUM 100 MG CAPSULE PO (08:12)
[2019-11-18] MEDS: SODIUM CHLORIDE 0.9% IV 1,000 ML 80 ML IV CONT (09:40)
--- NOTE | 2019-11-18 09:45 | PC.NURSE ---
Patient transferred to room 332 via bed with NS infusing at 80ml's/hour, hard chart, belongings and on droplet isolation for COVID rule out. Report given to ASHLEY Manzano.
--- NOTE | 2019-11-18 15:10 | PM.PNCARD ---
Progress Note: A&P Assessment and Plan (1) Orthostatic hypotension: Code(s): I95.1 - Orthostatic hypotension Status: Acute Assessment and Plan: Improving w/ IV fluids and holding furosemide and metoprolol. (2) Fever: Code(s): R50.9 - Fever, unspecified Status: Acute Assessment and Plan: CXR showed possible pneumonia. U/A negative. No phlebitis and inscisions healing well except perhaps RLE vein harvest site which has a small amount of drainage; will culture. Interestingly his WBC has fallen to 2.1 K. On vanc and Zosyn. Treatment per hospitalists. (3) Coronary artery disease: Code(s): I25.10 - Atherosclerotic heart disease of [place] coronary artery without angina pectoris Status: Chronic Assessment and Plan: S/P CABG, stable. (4) Postoperative atrial fibrillation: Code(s): I97.89 - Other postprocedural complications and disorders of the circulatory system, not elsewhere classified; I48.91 - Unspecified atrial fibrillation Status: Acute Assessment and Plan: Metoprolol on hold, amiodarone DC'd. NO clinical recurrence. Subjective Date/time seen: 11/18/19 15:[address] Landeros had CABG x2 ( SCHRADER to the Left anterior descending, SVG to the OM ) and PFO closure on 10/31/[address] Liang at [facility]. Echo 10/2019 showed EF 52%, mild LVH, diastolic dysfunction. Some postop AFib. Discharged 11/08/2019, on furosemide for 14 days as well as amiodarone, Eliquis cetera. Admitted with weakness and orthostasis. Ffurosemide discontinued and metoprolol has been held. he has been given IV fluids. developed a fever. Date of service 11/18/2019 Follow-up for orthostasis. Unfortunately the patient developed a fever of 102.7 last night. Cultures were obtained and he was started on antibiotics were started. Transferred to the COVID unit as PUIi. Blood pressures: 120/62 supine, 137/59 sitting, standing was 102/54 earlier today. Pt feels lousy, cold, shaky. Mild SOB, mild cough. Has not noted any erythema fr old IV sites. Review of Systems Constitutional: Constitutional: Reports chills, Reports fatigue, Reports lethargy and Reports weakness Eyes: Eyes: Reports no additional eye complaints ENT: Denies nasal congestion Cardiovascular: Cardiovascular: Denies chest pain, Denies pedal edema, Denies leg edema, Reports lightheadedness and Denies palpitations Respiratory: Respiratory: Denies chest congestion, Reports cough and Reports dyspnea Gastrointestinal: Gastrointestinal: Denies abdominal pain Genitourinary: Genitourinary: Denies dysuria Musculoskeletal: Musculoskeletal: Reports no additional musculoskeletal complaints Integumentary/Breasts: Skin/Breast: Denies erythema and Denies rash Neurologic: Reports system reviewed and no additional complaints, except as documented Psychiatric: Psychiatric: Reports no additional psychiatric complaints Exam Narrative: Exam Narrative: Older WM who is tremulous, piling on blankets, alert and w/o resp distress. Const: General: no acute distress and uncomfortable HENMT: Mouth: Yes moist mucous membranes Eyes: EOM: EOMs intact bilaterally Neck: Neck: supple Resp: Effort & Inspection: normal respiratory effort Auscultation: clear to auscultation bilaterally Cardio: Rate: regular rate Rhythm: regular rhythm Heart sounds: no murmurs GI: Inspection: non-distended Other: Soft and nontender Skin: Wounds: wounds noted Other: Median sternotomy unremarkable. No phlebitis. Small incision fr vein harvest site RLE may have slight purulent discharge. Ecchymosis right upper thigh. Neuro: Cognition (Neuro): normal cognition Speech: normal speech Motor exa
[2019-11-18] MEDS: ACETAMINOPHEN 500 MG TABLET 1000 MG PO (17:17)
--- NOTE | 2019-11-18 18:40 | PM.IMPN ---
Progress Note: A&P Assessment and Plan (1) Orthostatic hypotension: Code(s): I95.1 - Orthostatic hypotension Status: Acute Assessment and Plan: Improving today; continue to monitor orthostatic BP. Continue IV hydration. Amiodarone, metoprolol held. Appreciate cardiology recommendations. (2) Fever: Qualifiers: Fever type: unspecified Qualified Code(s): R50.9 - Fever, unspecified Code(s): R50.9 - Fever, unspecified Status: Acute Assessment and Plan: Etiology is unclear. Chest XR suggests atelectasis v. PNA. He was previously started on antibiotics to cover for a possible hospital-acquired pneumonia. Atelectasis could be related to recent CABG and admits he did not use spirometer as much postoperatively due to pain. Dr Norman also noticed R femoral harvest site with some minimal drainage and a wound culture was sent. Will monitor for these results, blood cultures are pending with no growth to date. Given his weakness, SOB, fatigue and fevers, feel it is prudent to test him for COVID-19. COVID pending, continue droplet isolation. Continue vancomycin and zosyn for now and deescalate as clinically indicated. Continue tylenol as needed for fevers. (3) Coronary artery disease: Qualifiers: Coronary Disease-Associated Artery/Lesion type: bypass graft [place] vs. transplanted heart: [place] heart Associated angina: without angina Qualified Code(s): I25.810 - Atherosclerosis of coronary artery bypass graft(s) without angina pectoris Code(s): I25.10 - Atherosclerotic heart disease of [place] coronary artery without angina pectoris Status: Chronic Assessment and Plan: History of cardiac stenting in the past and recent 2-vessel CABG at [facility] 10/31/19. Stable, no chest pain today. Continue cardiology recommendations. (4) Postoperative atrial fibrillation: Code(s): I97.89 - Other postprocedural complications and disorders of the circulatory system, not elsewhere classified; I48.91 - Unspecified atrial fibrillation Status: Resolved Assessment and Plan: Per records, patient experienced postoperative A fib for which he was treated with amiodarone. He has had no further instances of such and amio has been discontinued. Cardiology following. (5) Hyperlipidemia: Qualifiers: Hyperlipidemia type: unspecified Qualified Code(s): E78.5 - Hyperlipidemia, unspecified Code(s): E78.5 - Hyperlipidemia, unspecified Status: Chronic Assessment and Plan: Continue with atorvastatin. (6) Hypertension: Qualifiers: Hypertension type: essential hypertension Qualified Code(s): I10 - Essential (primary) hypertension Code(s): I10 - Essential (primary) hypertension Status: Chronic Assessment and Plan: Last 139/63. Patient has orthostatic hypotension. Metoprolol held. Continue to monitor BP closely. (7) Anemia: Qualifiers: Anemia type: unspecified type Qualified Code(s): D64.9 - Anemia, unspecified Code(s): D64.9 - Anemia, unspecified Status: Acute Assessment and Plan: H&H low but stable. In fact a pancytopenia is noted. ?Infection contributing with questionable pneumonia. No evidence of acute bleeding at this time. Monitor H&H and transfuse as needed. Continue B12 and folic acid supplementation. Monitor for bleeding with systemic anticoagulation. Subjective Date/time seen: 11/18/19 1345 Interval history: Mr. Call is a 74yo M admitted due to orthostatic hypotension and fevers following recent 2-vessel CABG at [facility] 10/31/19. He is feeling quite unwell this a
[2019-11-18 20:20] LABS: SARS-CoV-2 RNA PCR Positive
[2019-11-19] VITALS (13 sets, daily range): BP systolic 97–150; BP diastolic 58–96; PULSE 77–94; RESP 18–20; TEMP 36.3–38.3; O2SAT 93–98
[2019-11-19] MEDS: SODIUM CHLORIDE 0.9% IV 1,000 ML 80 ML IV CONT (00:05)
[2019-11-19] MEDS: ACETAMINOPHEN 500 MG TABLET 1000 MG PO (05:20)
[2019-11-19 07:01] LABS: Basophils Percent Auto 0.6 % (0.2-1.2); Eosinophils Percent Auto 1.8 % (0-4.4); Hematocrit 25.5 % (42.0-52.0); Hemoglobin 8.5 g/dL (14.0-18.0); Immature Granulocyte Absolute 0.02 K/mm3 (0.00-0.031); Immature Granulocyte Percent A 1.2 % (0-0.5); Lymphocytes Absolute Auto 0.53 K/mm3 (0.9-3.2); Lymphocytes Percent Auto 32.5 % (18.3-44.2); Mean Corpuscular HGB Conc 33.3 g/dl (32-36); Mean Corpuscular Hemoglobin 31.8 pg (26-34); Mean Corpuscular Volume 95.5 fl (80-100); Mean Platelet Volume 10.8 fl (7.4-10.4); Monocytes Absolute Auto 0.1 K/mm3 (0.1-0.6); Monocytes Percent Auto 6.7 % (2.6-8.5); Neutrophils Absolute Auto 0.9 K/mm3 (1.3-6.7); Neutrophils Percent Auto 57.2 % (45.5-73.1); Platelet Count Result 156 k/mm3 (150-375); Red Blood Count 2.67 M/mm3 (4.6-6.20); Red Cell Distribution Width 18.6 % (11.5-14.5)
[2019-11-19 07:13] LABS: White Blood Count 1.6 K/mm3 (4.5-10.0)
[2019-11-19 07:41] LABS: Potassium 3.7 mmol/L (3.4-5.0)
[2019-11-19 07:44] LABS: Erythrocyte Sedimentation Rate > 140 mm/hr (0-20)
[2019-11-19 07:48] LABS: Anion Gap 6 mmol/L (8-16); Blood Urea Nitrogen 10 mg/dL (9-20); CRP 7.5 mg/dL (<1.0); Calcium 7.3 mg/dL (8.4-10.2); Carbon Dioxide 24 mmol/L (22-30); Chloride 103 mmol/L (98-107); Estimated CRCL calculation 67 ml/min; Estimated Glomerular Filt Rate > 60; Glucose 125 mg/dL (75-110); Lactate Dehydrogenase 563 U/L (313-618); Magnesium 2.1 mg/dL (1.6-2.3); Sodium 133 mmol/L (137-145)
[2019-11-19] MEDS: polyethylene glycoL 3350 17 GM POWD.PACK PO (08:40)
[2019-11-19] MEDS: FOLIC ACID 0.4 MG TABLET 0.8 MG PO (08:41)
[2019-11-19] MEDS: MULTIVITAMINS /C LUTEIN (CENTRUM SILVER) TABLET *BKC 1 TAB PO (08:41)
[2019-11-19] MEDS: PANTOPRAZOLE 40 MG TABLET PO (08:41)
[2019-11-19] MEDS: CYANOCOBALAMIN 1,000 MCG TABLET 2000 MCG PO (08:41)
[2019-11-19] MEDS: APIXABAN 5 MG TABLET PO ×2 (08:42→16:27)
[2019-11-19] MEDS: CYANOCOBALAMIN 500 MCG TABLET PO (08:42)
[2019-11-19] MEDS: ASPIRIN 81 MG CHEWABLE TABLET PO (08:42)
[2019-11-19] MEDS: DOCUSATE SODIUM 100 MG CAPSULE PO (08:42)
--- NOTE | 2019-11-19 12:50 | PM.IMPN ---
Progress Note: A&P Assessment and Plan (1) COVID-19: Code(s): U07.1 - COVID-19 Status: Acute Assessment and Plan: PNA noted on imaging; COVID + 11/18/19. Symptoms began around 11/12. Likely the reason for his fevers and contributing to weakness, fatigue, pancytopenia. At this time his respiratory status is stable and he is maintaining adequate oxygenation on room air. We will continue to treat supportively with albuterol MDI as needed, antipyretics. Stopped IV fluids for now as he may be more susceptible to overload with COVID, and monitor BP closely given his recent orthostasis. For now we will continue with antibiotics he was started on for pneumonia, until right thigh wound culture results are available, and deescalate as clinically indicated. (2) Orthostatic hypotension: Code(s): I95.1 - Orthostatic hypotension Status: Acute Assessment and Plan: Improving; continue to monitor orthostatic BP. Treated with IV fluids. Amiodarone, metoprolol held. Appreciate cardiology recommendations. (3) Coronary artery disease: Qualifiers: Coronary Disease-Associated Artery/Lesion type: bypass graft [place] vs. transplanted heart: [place] heart Associated angina: without angina Qualified Code(s): I25.810 - Atherosclerosis of coronary artery bypass graft(s) without angina pectoris Code(s): I25.10 - Atherosclerotic heart disease of [place] coronary artery without angina pectoris Status: Chronic Assessment and Plan: History of cardiac stenting in the past and recent 2-vessel CABG at [facility] 10/31/19. Stable, no chest pain today. Continue cardiology recommendations. (4) Postoperative atrial fibrillation: Code(s): I97.89 - Other postprocedural complications and disorders of the circulatory system, not elsewhere classified; I48.91 - Unspecified atrial fibrillation Status: Resolved Assessment and Plan: Per records, patient experienced postoperative A fib for which he was treated with amiodarone. He has had no further instances of such and amio has been discontinued. Cardiology following. (5) Hyperlipidemia: Qualifiers: Hyperlipidemia type: unspecified Qualified Code(s): E78.5 - Hyperlipidemia, unspecified Code(s): E78.5 - Hyperlipidemia, unspecified Status: Chronic Assessment and Plan: Continue with atorvastatin. (6) Hypertension: Qualifiers: Hypertension type: essential hypertension Qualified Code(s): I10 - Essential (primary) hypertension Code(s): I10 - Essential (primary) hypertension Status: Chronic Assessment and Plan: Last . Patient has had orthostatic hypotension with variable BPs. Metoprolol held. Continue to monitor BP closely. (7) Pancytopenia: Code(s): D61.818 - Other pancytopenia Status: Acute Assessment and Plan: At this time is felt to be secondary to viral syndrome. WBC lower today at 1.6. H&H low but stable. No evidence of acute bleeding at this time but will monitor the ecchymosis at R fem harvest site. Monitor CBC. Continue B12 and folic acid supplementation. Monitor for bleeding with systemic anticoagulation. Subjective Date/time seen: 11/19/19 12:50 Interval history: Mr. Call is a 74yo M admitted due to orthostatic hypotension and fevers following recent 2-vessel CABG at [facility] 8/11/20. Found to be COVID positive. He is feeling a bit better than yesterday. Dizziness and shakiness have improved. Overall feels weak and fatigued. He denies any chest pain today. Denies abdominal pain, nausea, or vomiting and has tolerated some oral intake. Review
--- NOTE | 2019-11-19 15:08 | PM.PNCARD ---
Progress Note: A&P Assessment and Plan (1) Orthostatic hypotension: Code(s): I95.1 - Orthostatic hypotension Status: Acute Assessment and Plan: Improving w/ IV fluids and holding furosemide and metoprolol. (2) Coronary artery disease: Qualifiers: Coronary Disease-Associated Artery/Lesion type: bypass graft [place] vs. transplanted heart: [place] heart Associated angina: without angina Qualified Code(s): I25.810 - Atherosclerosis of coronary artery bypass graft(s) without angina pectoris Code(s): I25.10 - Atherosclerotic heart disease of [place] coronary artery without angina pectoris Status: Chronic Assessment and Plan: S/P CABG, stable. (3) Postoperative atrial fibrillation: Code(s): I97.89 - Other postprocedural complications and disorders of the circulatory system, not elsewhere classified; I48.91 - Unspecified atrial fibrillation Status: Resolved Assessment and Plan: Metoprolol on hold, amiodarone DC'd. Still on Eliquis. No clinical recurrence. (4) COVID-19: Code(s): U07.1 - COVID-19 Status: Acute Assessment and Plan: Fever, CXR showed possible pneumonia. Interestingly his WBC has fallen to 2.1 K. On vanc and Zosyn. On Eliquis for post-op a fib; would keep on this for now. Treatment per hospitalists. (5) Fever: Code(s): R50.9 - Fever, unspecified Status: Acute Assessment and Plan: No phlebitis and inscisions healing well except perhaps RLE vein harvest site which has a small amount of drainage and growing Gm + cocci. ON Vanc and Zosyn. Treatment per hospitalists. Subjective Date/time seen: 11/19/19 15:[address] Landeros had CABG x2 ( SCHRADER to the Left anterior descending, SVG to the OM ) and PFO closure on 10/31/[address] Liang at [facility]. Echo 10/2019 showed EF 52%, mild LVH, diastolic dysfunction. Some postop AFib. Discharged 11/08/2019, on furosemide for 14 days as well as amiodarone, Eliquis cetera. Admitted with weakness and orthostasis. Furosemide discontinued and metoprolol has been held. He has been given IV fluids. Developed a fever and is COVID POSITIVE. 11/18/2019: Unfortunately the patient developed a fever of 102.7 last night. Cultures were obtained and he was started on antibiotics were started. Transferred to the COVID unit as PUI.. Blood pressures: 120/62 supine, 137/59 sitting, standing was 102/54 earlier today. Pt feels lousy, cold, shaky. Mild SOB, mild cough. Requested a C&S of vein harvest site. CXR suggested poss pneumonia; started on antibiotics. Date of Service 11/19/2019 Low grade temp this a.m. Soft BP, though not orthostatic. Not requiring O2. I/O = 3600 in/2700 out. COVID +. Not requiring O2. Exam Narrative: Exam Narrative: Pt not examined. Objective Data Vital Signs Vital Signs: Vital Signs - 24 hr 11/18/19 16:00 11/18/19 17:17 11/18/19 18:17 Temperature 101.4 F H 101.4 F H 101.3 F H Pulse Rate 87 Respiratory Rate 18 Blood Pressure 139/63 Pulse Oximetry 95 11/18/19 20:00 11/19/19 00:00 11/19/19 05:09 Temperature 97.9 F 97.4 F L 100.9 F H Pulse Rate 81 87 89 Respiratory Rate 16 18 18 Blood Pressure 103/58 L 121/71 130/76 Pulse Oximetry 95 93 96 11/19/19 05:20 11/19/19 06:20 11/19/19 08:00 Temperature 100.9 F H 97.7 F 97.7 F Pulse Rate 81 Respiratory Rate 18 Blood Pressure 97/62 L Pulse Oximetry 96 11/19/19 08:05 11/19/19 09:00 11/19/19 12:00 Temperature 97.9 F Pulse Rate 77 Respiratory Rate 18 Blood Pressure 101/61 98/61 L 115/67 Pulse Oximetry 94 Intake/Output Intake/Output: Intake & Output 11/16/19 11/17/19 11/18/19 11/19/19 23:59 23:59 23:59
[2019-11-19] MEDS: ATORVASTATIN 40 MG TABLET PO (21:14)
[2019-11-20] VITALS (12 sets, daily range): BP systolic 69–154; BP diastolic 42–75; PULSE 75–93; RESP 18; TEMP 36.3–38.2; O2SAT 92–96; BMI 26.5
[2019-11-20] MEDS: ACETAMINOPHEN 500 MG TABLET 1000 MG PO ×2 (00:10→18:31)
[2019-11-20 04:36] LABS: Basophils Percent Auto 0.4 % (0.2-1.2); Eosinophils Percent Auto 0.4 % (0-4.4); Hematocrit 29.2 % (42.0-52.0); Hemoglobin 9.7 g/dL (14.0-18.0); Immature Granulocyte Absolute 0.02 K/mm3 (0.00-0.031); Immature Granulocyte Percent A 0.8 % (0-0.5); Lymphocytes Absolute Auto 0.98 K/mm3 (0.9-3.2); Mean Corpuscular HGB Conc 33.2 g/dl (32-36); Mean Corpuscular Hemoglobin 31.9 pg (26-34); Mean Corpuscular Volume 96.1 fl (80-100); Mean Platelet Volume 11.4 fl (7.4-10.4); Monocytes Absolute Auto 0.1 K/mm3 (0.1-0.6); Monocytes Percent Auto 3.7 % (2.6-8.5); Neutrophils Absolute Auto 1.3 K/mm3 (1.3-6.7); Neutrophils Percent Auto 54.7 % (45.5-73.1); Platelet Count Result 184 k/mm3 (150-375); Red Blood Count 3.04 M/mm3 (4.6-6.20); Red Cell Distribution Width 18.6 % (11.5-14.5); White Blood Count 2.5 K/mm3 (4.5-10.0)
[2019-11-20 04:49] LABS: Estimated CRCL calculation 61 ml/min; Estimated Glomerular Filt Rate > 60
[2019-11-20 04:50] LABS: Alanine Aminotransferase 38 U/L (4-50); Albumin Level 2.9 g/dL (3.5-5.1); Alkaline Phosphatase 74 U/L (38-126); Anion Gap 8 mmol/L (8-16); Aspartate Amino Transferase 51 U/L (17-59); Bilirubin,Total 0.8 mg/dL (0.2-1.3); Blood Urea Nitrogen 12 mg/dL (9-20); Calcium 7.7 mg/dL (8.4-10.2); Carbon Dioxide 25 mmol/L (22-30); Chloride 102 mmol/L (98-107); Estimated CRCL calculation 61 ml/min; Estimated Glomerular Filt Rate > 60; Glucose 114 mg/dL (75-110); Magnesium 2.2 mg/dL (1.6-2.3); Potassium 3.8 mmol/L (3.4-5.0); Sodium 135 mmol/L (137-145)
[2019-11-20 05:00] LABS: Platelet Estimate Adequate (Adequate)
[2019-11-20 05:01] LABS: Macrocytosis 1+ (NORMAL); Ovalocytes 1+ (NORMAL)
[2019-11-20] MEDS: ASPIRIN 81 MG CHEWABLE TABLET PO (09:29)
[2019-11-20] MEDS: CYANOCOBALAMIN 500 MCG TABLET PO (09:29)
[2019-11-20] MEDS: FOLIC ACID 0.4 MG TABLET 0.8 MG PO (09:29)
[2019-11-20] MEDS: CYANOCOBALAMIN 1,000 MCG TABLET 2000 MCG PO (09:29)
[2019-11-20] MEDS: PANTOPRAZOLE 40 MG TABLET PO (09:29)
[2019-11-20] MEDS: MULTIVITAMINS /C LUTEIN (CENTRUM SILVER) TABLET *BKC 1 TAB PO (09:29)
[2019-11-20] MEDS: APIXABAN 5 MG TABLET PO ×2 (09:29→18:23)
[2019-11-20] MEDS: DOCUSATE SODIUM 100 MG CAPSULE PO (09:29)
--- NOTE | 2019-11-20 15:38 | PM.IMPN ---
Progress Note: A&P Assessment and Plan (1) COVID-19: Code(s): U07.1 - COVID-19 Status: Acute Assessment and Plan: PNA noted on imaging; COVID + 11/18/19. Symptoms began around 11/12. Likely the reason for his fevers and contributing to weakness, fatigue, pancytopenia. At this time his respiratory status is stable and he is maintaining adequate oxygenation on room air. We will continue to treat supportively with albuterol MDI as needed, antipyretics. Stopped IV fluids for now as he may be more susceptible to overload with COVID, and monitor BP closely given his recent orthostasis. For now we will continue with antibiotics he was started on for pneumonia, until right thigh wound culture results/sensitivities are available, and deescalate as clinically indicated. (2) Orthostatic hypotension: Code(s): I95.1 - Orthostatic hypotension Status: Acute Assessment and Plan: Continue to monitor orthostatic BP. Treated with IV fluids. Amiodarone, metoprolol held. Appreciate cardiology recommendations. (3) Coronary artery disease: Qualifiers: Coronary Disease-Associated Artery/Lesion type: bypass graft [place] vs. transplanted heart: [place] heart Associated angina: without angina Qualified Code(s): I25.810 - Atherosclerosis of coronary artery bypass graft(s) without angina pectoris Code(s): I25.10 - Atherosclerotic heart disease of [place] coronary artery without angina pectoris Status: Chronic Assessment and Plan: History of cardiac stenting in the past and recent 2-vessel CABG at [facility] [place] 10/31/19. Stable, no chest pain today. Continue cardiology recommendations. (4) Postoperative atrial fibrillation: Code(s): I97.89 - Other postprocedural complications and disorders of the circulatory system, not elsewhere classified; I48.91 - Unspecified atrial fibrillation Status: Resolved Assessment and Plan: Per records, patient experienced postoperative A fib for which he was treated with amiodarone. He has had no further instances of such and amio has been discontinued. Cardiology following. (5) Hyperlipidemia: Qualifiers: Hyperlipidemia type: unspecified Qualified Code(s): E78.5 - Hyperlipidemia, unspecified Code(s): E78.5 - Hyperlipidemia, unspecified Status: Chronic Assessment and Plan: Continue with atorvastatin. (6) Hypertension: Qualifiers: Hypertension type: essential hypertension Qualified Code(s): I10 - Essential (primary) hypertension Code(s): I10 - Essential (primary) hypertension Status: Chronic Assessment and Plan: Patient has had orthostatic hypotension with variable BPs. Metoprolol held. Continue to monitor BP closely. (7) Pancytopenia: Code(s): D61.818 - Other pancytopenia Status: Acute Assessment and Plan: At this time is felt to be secondary to viral syndrome. WBC slightly improved today. H&H low but stable. No evidence of acute bleeding at this time but will monitor the ecchymosis at R fem harvest site. Monitor CBC. Continue B12 and folic acid supplementation. Monitor for bleeding with systemic anticoagulation. Additional Plan Monitor right thigh femoral harvest site which is draining serous yellow fluid. Cultured, awaiting sensitivities. Started BID bactroban to the site. Discussed with Dr Marcus and Jane, wound RN. Subjective Date/time seen: 11/20/19 14:30 Interval history: Mr. Call is a 74yo M admitted due to orthostatic hypotension and fevers following recent 2-vessel CABG at [facility] [place] 10/31/19. Found to be COVID positive. He is feeling about the rox
[2019-11-20] MEDS: ATORVASTATIN 40 MG TABLET PO (20:50)
[2019-11-20] MEDS: MUPIROCIN 2% OINT 22 GM TUBE 1 APPLIC TOPICAL (20:50)
[2019-11-21] VITALS (7 sets, daily range): BP systolic 73–128; BP diastolic 45–70; PULSE 50–95; RESP 16–18; TEMP 36.4–37.1; O2SAT 92–96
[2019-11-21] MEDS: ACETAMINOPHEN 500 MG TABLET 1000 MG PO ×2 (06:07→18:09)
[2019-11-21 06:47] LABS: Basophils Percent Auto 0.3 % (0.2-1.2); Eosinophils Percent Auto 1.3 % (0-4.4); Hematocrit 28.1 % (42.0-52.0); Hemoglobin 9.2 g/dL (14.0-18.0); Immature Granulocyte Absolute 0.03 K/mm3 (0.00-0.031); Lymphocytes Absolute Auto 0.83 K/mm3 (0.9-3.2); Lymphocytes Percent Auto 27.4 % (18.3-44.2); Mean Corpuscular HGB Conc 32.7 g/dl (32-36); Mean Corpuscular Volume 94.6 fl (80-100); Monocytes Absolute Auto 0.1 K/mm3 (0.1-0.6); Monocytes Percent Auto 3.6 % (2.6-8.5); Neutrophils Percent Auto 66.4 % (45.5-73.1); Platelet Count Result 178 k/mm3 (150-375); Red Blood Count 2.97 M/mm3 (4.6-6.20); Red Cell Distribution Width 18.5 % (11.5-14.5)
[2019-11-21 07:07] LABS: Anion Gap 7 mmol/L (8-16); Blood Urea Nitrogen 12 mg/dL (9-20); Calcium 7.7 mg/dL (8.4-10.2); Carbon Dioxide 25 mmol/L (22-30); Chloride 101 mmol/L (98-107); Estimated CRCL calculation 73 ml/min; Estimated Glomerular Filt Rate > 60; Glucose 125 mg/dL (75-110); Magnesium 2.3 mg/dL (1.6-2.3); Potassium 3.6 mmol/L (3.4-5.0); Sodium 133 mmol/L (137-145)
[2019-11-21 07:40] LABS: Macrocytosis 1+ (NORMAL); Platelet Estimate Adequate (Adequate)
[2019-11-21 07:41] LABS: Burr Cells 1+ (NORMAL); Ovalocytes 1+ (NORMAL)
[2019-11-21] MEDS: MULTIVITAMINS /C LUTEIN (CENTRUM SILVER) TABLET *BKC 1 TAB PO (07:52)
[2019-11-21] MEDS: DOCUSATE SODIUM 100 MG CAPSULE PO (07:53)
[2019-11-21] MEDS: CYANOCOBALAMIN 1,000 MCG TABLET 2000 MCG PO (07:53)
[2019-11-21] MEDS: PANTOPRAZOLE 40 MG TABLET PO (07:53)
[2019-11-21] MEDS: FOLIC ACID 0.4 MG TABLET 0.8 MG PO (07:53)
[2019-11-21] MEDS: CYANOCOBALAMIN 500 MCG TABLET PO (07:53)
[2019-11-21] MEDS: ASPIRIN 81 MG CHEWABLE TABLET PO (07:53)
[2019-11-21] MEDS: APIXABAN 5 MG TABLET PO ×2 (07:54→18:09)
[2019-11-21 08:39] LABS: CRP 14.1 mg/dL (<1.0)
--- NOTE | 2019-11-21 10:33 | PM.PNCARD ---
Progress Note: A&P Assessment and Plan (1) Orthostatic hypotension: Code(s): I95.1 - Orthostatic hypotension Status: Acute Assessment and Plan: Improving w/ IV fluids and holding furosemide and metoprolol. (2) Coronary artery disease: Qualifiers: Coronary Disease-Associated Artery/Lesion type: bypass graft [place] vs. transplanted heart: [place] heart Associated angina: without angina Qualified Code(s): I25.810 - Atherosclerosis of coronary artery bypass graft(s) without angina pectoris Code(s): I25.10 - Atherosclerotic heart disease of [place] coronary artery without angina pectoris Status: Chronic Assessment and Plan: S/P CABG, stable. (3) Postoperative atrial fibrillation: Code(s): I97.89 - Other postprocedural complications and disorders of the circulatory system, not elsewhere classified; I48.91 - Unspecified atrial fibrillation Status: Resolved Assessment and Plan: Metoprolol on hold, amiodarone DC'd. Still on Eliquis. No clinical recurrence. (4) COVID-19: Code(s): U07.1 - COVID-19 Status: Acute Assessment and Plan: Fever, CXR showed possible pneumonia. Interestingly his WBC has fallen to 2.1 K. On vanc and Zosyn. On Eliquis for post-op a fib; would keep on this for now. Treatment per hospitalists. (5) Fever: Code(s): R50.9 - Fever, unspecified Status: Acute Assessment and Plan: No phlebitis and inscisions healing well except perhaps RLE vein harvest site which has a small amount of drainage and growing Gm + cocci. ON Vanc and Zosyn. Treatment per hospitalists. (6) Hypokalemia: Code(s): E87.6 - Hypokalemia Status: Acute Assessment and Plan: will replace with KCL 40 mEq p.o. x1 Subjective Date/time seen: 11/21/19 10:33 Interval history: Mr. Call is a 74yo M admitted due to orthostatic hypotension and fevers following recent 2-vessel CABG at [facility] 10/31/19. Found to be COVID positive. date of [id number]/21/2019: Still feels very weak. Biggest complaint is generalized weakness. Still has some worsening weakness upon standing. Still orthostatic. He denies any chest pain, shortness of breath. Review of Systems Constitutional: Constitutional: Reports chills, Reports fatigue, Reports lethargy and Reports weakness Eyes: Eyes: Reports no additional eye complaints ENT: Reports system reviewed and no additional complaints, except as documented and Denies nasal congestion Cardiovascular: Cardiovascular: Reports as per HPI, Denies chest pain, Denies pedal edema, Denies leg edema, Reports lightheadedness, Denies palpitations and Reports dyspnea Respiratory: Respiratory: Reports no additional respiratory complaints, Denies chest congestion, Reports cough and Reports dyspnea Gastrointestinal: Gastrointestinal: Reports no additional gastrointestinal complaints and Denies abdominal pain Genitourinary: Genitourinary: Denies dysuria Musculoskeletal: Musculoskeletal: Reports no additional musculoskeletal complaints Integumentary/Breasts: Skin/Breast: Reports system reviewed and no additional complaints, except as docu, Denies erythema and Denies rash Neurologic: Reports system reviewed and no additional complaints, except as documented, Reports as per HPI and Reports weakness Psychiatric: Psychiatric: Reports no additional psychiatric complaints Endocrine: Endocrine: Reports no additional endocrine complaints, Reports fatigue and Denies palpitations Hematologic/Lymphatic: Hematologic/Lymphatic: Reports no additional hematologic/lymphatic complaints Allergic/Immunologic: Allergic/Immunologic: Reports no additional allergic/immunologic complaints Exam Narrat
[2019-11-21] MEDS: POTASSIUM CHLORIDE 20 MEQ TABLET 40 MEQ PO (11:08)
[2019-11-21] MEDS: MUPIROCIN 2% OINT 22 GM TUBE 1 APPLIC TOPICAL ×2 (11:08→21:32)
--- NOTE | 2019-11-21 13:24 | PCWOUND ---
WOCN NOTE Received referral to see knee wound. spoke to SCALDER and Day RN. Received report that wound is looking good per home maker and patient has new orders for wound care. RN to call wound care is assessment is needed.
--- NOTE | 2019-11-21 16:01 | PM.IMPN ---
Progress Note: A&P Assessment and Plan (1) COVID-19: Code(s): U07.1 - COVID-19 Status: Acute Assessment and Plan: ---- COVID positive November 18, 2019 and symptoms began around the . He did have a CABG on the at [facility] but afterwards his had friends over and thinks that is how he got it. His is positive to. He has not had any cough or shortness of breath but just weakness. He has not needed oxygen therefore does not qualify for remdesivir or decadron at this time. We will continue to monitor. MDI inhaler as needed (2) Orthostatic hypotension: Code(s): I95.1 - Orthostatic hypotension Status: Acute Assessment and Plan: ----- patient continues to be orthostatic. Could be due to his blood pressure medications but those have been held and he is not getting much better. I am hesitant to start fluids since he is covered positive. At this time will try Andrea hose but if he does not improve may need to give him a small amount of fluids tomorrow. Will check chest x-ray tomorrow morning. Continue with cardiology's recommendations (3) Coronary artery disease: Qualifiers: Coronary Disease-Associated Artery/Lesion type: bypass graft [place] vs. transplanted heart: [place] heart Associated angina: without angina Qualified Code(s): I25.810 - Atherosclerosis of coronary artery bypass graft(s) without angina pectoris Code(s): I25.10 - Atherosclerotic heart disease of [place] coronary artery without angina pectoris Status: Chronic Assessment and Plan: -----History of cardiac stenting in the past and recent 2-vessel CABG at [facility] 10/31/19. Stable, no chest pain today. Continue cardiology recommendations. (4) Postoperative atrial fibrillation: Code(s): I97.89 - Other postprocedural complications and disorders of the circulatory system, not elsewhere classified; I48.91 - Unspecified atrial fibrillation Status: Resolved Assessment and Plan: -----Per records, patient experienced postoperative A fib for which he was treated with amiodarone. He has had no further instances of such and amio has been discontinued. Cardiology following. continue Eliquis (5) Hyperlipidemia: Qualifiers: Hyperlipidemia type: unspecified Qualified Code(s): E78.5 - Hyperlipidemia, unspecified Code(s): E78.5 - Hyperlipidemia, unspecified Status: Chronic Assessment and Plan: -----Continue with atorvastatin. (6) Hypertension: Qualifiers: Hypertension type: essential hypertension Qualified Code(s): I10 - Essential (primary) hypertension Code(s): I10 - Essential (primary) hypertension Status: Chronic Assessment and Plan: -----Patient has had orthostatic hypotension with variable BPs. Metoprolol held. Continue to monitor BP closely. (7) Pancytopenia: Code(s): D61.818 - Other pancytopenia Status: Acute Assessment and Plan: -----At this time is felt to be secondary to viral syndrome. WBC slightly improved today. H&H low but stable. No evidence of acute bleeding at this time but will monitor the ecchymosis at R fem harvest site. Monitor CBC. Continue B12 and folic acid supplementation. Monitor for bleeding with systemic anticoagulation. (8) Postoperative infection: Code(s): T81.40XA - Infection following a procedure, unspecified, initial encounter Status: Acute Assessment and Plan: ----- patient's harvest site on the right thigh appeared to be draining serous yellow fluid by the previous provider. This was cultured and the sensitivities are back. Will stop vancomycin and start ampicillin. He does not appear clinically infected at this time. continue Bactroban to the site as well Time Spent With Patient Time with patient: 25 - 35 minutes Subjective Date/time seen: 11/21/19 16:01 Interval history: Pt is a 74-year-old ma
[2019-11-21] MEDS: AMPICILLIN 1 GM/NS 50 ML 1 GM/50 ML BAG IVPB ×2 (18:09→23:45)
[2019-11-21] MEDS: ATORVASTATIN 40 MG TABLET PO (21:32)
[2019-11-22] VITALS (9 sets, daily range): BP systolic 96–125; BP diastolic 44–73; PULSE 73–84; RESP 16–20; TEMP 36.6–37; O2SAT 92–97
[2019-11-22] MEDS: AMPICILLIN 1 GM/NS 50 ML 1 GM/50 ML BAG IVPB (06:11)
[2019-11-22 07:23] LABS: Hematocrit 27.9 % (42.0-52.0); Hemoglobin 9.2 g/dL (14.0-18.0); Mean Corpuscular Hemoglobin 31.4 pg (26-34); Mean Corpuscular Volume 95.2 fl (80-100); Mean Platelet Volume 11.4 fl (7.4-10.4); Platelet Count Result 185 k/mm3 (150-375); Red Blood Count 2.93 M/mm3 (4.6-6.20); Red Cell Distribution Width 18.6 % (11.5-14.5); White Blood Count 2.8 K/mm3 (4.5-10.0)
[2019-11-22 07:48] LABS: Albumin Level 2.8 g/dL (3.5-5.1)
[2019-11-22 07:49] LABS: Alanine Aminotransferase 78 U/L (4-50); Alkaline Phosphatase 89 U/L (38-126); Anion Gap 7 mmol/L (8-16); Aspartate Amino Transferase 75 U/L (17-59); Bilirubin,Total 0.8 mg/dL (0.2-1.3); Blood Urea Nitrogen 13 mg/dL (9-20); CRP 13.9 mg/dL (<1.0); Calcium 7.5 mg/dL (8.4-10.2); Carbon Dioxide 26 mmol/L (22-30); Chloride 103 mmol/L (98-107); Estimated CRCL calculation 67 ml/min; Estimated Glomerular Filt Rate > 60; Glucose 111 mg/dL (75-110); Lactate Dehydrogenase 656 U/L (313-618); Magnesium 2.4 mg/dL (1.6-2.3); Phosphorus 3.3 mg/dL (2.5-4.5); Potassium 3.7 mmol/L (3.4-5.0); Sodium 136 mmol/L (137-145)
[2019-11-22] MEDS: MUPIROCIN 2% OINT 22 GM TUBE 1 APPLIC TOPICAL ×2 (08:57→21:34)
[2019-11-22] MEDS: APIXABAN 5 MG TABLET PO ×2 (08:59→17:14)
[2019-11-22] MEDS: ASPIRIN 81 MG CHEWABLE TABLET PO (08:59)
[2019-11-22] MEDS: CYANOCOBALAMIN 500 MCG TABLET PO (09:00)
[2019-11-22] MEDS: FOLIC ACID 0.4 MG TABLET 0.8 MG PO (09:00)
[2019-11-22] MEDS: DOCUSATE SODIUM 100 MG CAPSULE PO (09:00)
[2019-11-22] MEDS: CYANOCOBALAMIN 1,000 MCG TABLET 2000 MCG PO (09:00)
[2019-11-22] MEDS: MULTIVITAMINS /C LUTEIN (CENTRUM SILVER) TABLET *BKC 1 TAB PO (09:00)
[2019-11-22] MEDS: PANTOPRAZOLE 40 MG TABLET PO (09:00)
--- NOTE | 2019-11-22 11:10 | PM.PNCARD ---
Progress Note: A&P Assessment and Plan (1) Orthostatic hypotension: Code(s): I95.1 - Orthostatic hypotension Status: Acute Assessment and Plan: still significantly orthostatic by numbers. Has not been up much to evaluate symptoms (2) Coronary artery disease: Qualifiers: Coronary Disease-Associated Artery/Lesion type: bypass graft [place] vs. transplanted heart: [place] heart Associated angina: without angina Qualified Code(s): I25.810 - Atherosclerosis of coronary artery bypass graft(s) without angina pectoris Code(s): I25.10 - Atherosclerotic heart disease of [place] coronary artery without angina pectoris Status: Chronic Assessment and Plan: S/P CABG, stable. (3) Postoperative atrial fibrillation: Code(s): I97.89 - Other postprocedural complications and disorders of the circulatory system, not elsewhere classified; I48.91 - Unspecified atrial fibrillation Status: Resolved Assessment and Plan: Metoprolol on hold, amiodarone DC'd. Still on Eliquis. No clinical recurrence. (4) COVID-19: Code(s): U07.1 - COVID-19 Status: Acute Assessment and Plan: Fever, CXR showed possible pneumonia. Interestingly his WBC has fallen to 2.1 K. On vanc and Zosyn. On Eliquis for post-op a fib; would keep on this for now. Treatment per hospitalists. (5) Fever: Code(s): R50.9 - Fever, unspecified Status: Acute Assessment and Plan: No phlebitis and inscisions healing well except perhaps RLE vein harvest site which has a small amount of drainage and growing Gm + cocci. ON Vanc and Zosyn. Treatment per hospitalists. (6) Hypokalemia: Code(s): E87.6 - Hypokalemia Status: Acute Assessment and Plan: will give an additional a 40 mEq of potassium chloride x1. Consider echocardiogram tomorrow if he is still orthostatic in particular to evaluate for any effusions and reassess EF following CABG Subjective Date/time seen: 11/22/19 11:10 Interval history: Mr. Call is a 74yo M admitted due to orthostatic hypotension and fevers following recent 2-vessel CABG at [facility] 10/31/19. Found to be COVID positive. date of [id number]/22/2019: From a Coronavirus perspective he is feeling a little better. He is less weak and had a good night sleep. He has not been up much though today to evaluate for orthostasis symptoms. No chest pain or shortness of breath Review of Systems Constitutional: Constitutional: Reports chills, Reports fatigue, Reports lethargy and Reports weakness Eyes: Eyes: Reports no additional eye complaints ENT: Reports system reviewed and no additional complaints, except as documented and Denies nasal congestion Cardiovascular: Cardiovascular: Reports as per HPI, Denies chest pain, Denies pedal edema, Denies leg edema, Reports lightheadedness, Denies palpitations and Reports dyspnea Respiratory: Respiratory: Reports no additional respiratory complaints, Denies chest congestion, Reports cough and Reports dyspnea Gastrointestinal: Gastrointestinal: Reports no additional gastrointestinal complaints and Denies abdominal pain Genitourinary: Genitourinary: Denies dysuria Musculoskeletal: Musculoskeletal: Reports no additional musculoskeletal complaints Integumentary/Breasts: Skin/Breast: Reports system reviewed and no additional complaints, except as docu, Denies erythema and Denies rash Neurologic: Reports system reviewed and no additional complaints, except as documented, Reports as per HPI and Reports weakness Psychiatric: Psychiatric: Reports no additional psychiatric complaints Endocrine: Endocrine: Reports no additional endocrine complaints, Reports fatigue and Denies palpitations He
[2019-11-22] MEDS: POTASSIUM CHLORIDE 20 MEQ TABLET 40 MEQ PO (11:35)
--- NOTE | 2019-11-22 16:00 | PM.IMPN ---
Progress Note: A&P Assessment and Plan (1) COVID-19: Code(s): U07.1 - COVID-19 Status: Acute Assessment and Plan: ---- COVID positive November 18, 2019 and symptoms began around the . He did have a CABG on the at [facility] but afterwards his had friends over and thinks that is how he got it. His is positive too. He has not had any cough or shortness of breath but just weakness. He has not needed oxygen therefore does not qualify for remdesivir or decadron at this time. We will continue to monitor. MDI inhaler as needed (2) Orthostatic hypotension: Code(s): I95.1 - Orthostatic hypotension Status: Acute Assessment and Plan: -----no new orthostatic vitals have been reported today and I have asked the nurse to take some now. He has been wearing the Andrea hose and states he got up with therapy earlier today and felt better than he did yesterday. Could be due to his blood pressure medications but those have been held and he is not getting much better. I am hesitant to start fluids since he is covid positive. At this time will continue to use Andrea hose but if he does not improve may need to give him a small amount of fluids. CXR improving. Continue with cardiology's recommendations (3) Coronary artery disease: Qualifiers: Coronary Disease-Associated Artery/Lesion type: bypass graft [place] vs. transplanted heart: [place] heart Associated angina: without angina Qualified Code(s): I25.810 - Atherosclerosis of coronary artery bypass graft(s) without angina pectoris Code(s): I25.10 - Atherosclerotic heart disease of [place] coronary artery without angina pectoris Status: Chronic Assessment and Plan: -----History of cardiac stenting in the past and recent 2-vessel CABG at [facility] 10/31/19. Stable, no chest pain today. Incision clean and dry. Continue cardiology recommendations. (4) Postoperative atrial fibrillation: Code(s): I97.89 - Other postprocedural complications and disorders of the circulatory system, not elsewhere classified; I48.91 - Unspecified atrial fibrillation Status: Resolved Assessment and Plan: -----Per records, patient experienced postoperative A fib for which he was treated with amiodarone. He has had no further instances of such and amio has been discontinued. Cardiology following. continue Eliquis (5) Hyperlipidemia: Qualifiers: Hyperlipidemia type: unspecified Qualified Code(s): E78.5 - Hyperlipidemia, unspecified Code(s): E78.5 - Hyperlipidemia, unspecified Status: Chronic Assessment and Plan: -----Continue with atorvastatin. (6) Hypertension: Qualifiers: Hypertension type: essential hypertension Qualified Code(s): I10 - Essential (primary) hypertension Code(s): I10 - Essential (primary) hypertension Status: Chronic Assessment and Plan: -----Patient has had orthostatic hypotension with variable BPs. Metoprolol held. Continue to monitor BP closely. (7) Pancytopenia: Code(s): D61.818 - Other pancytopenia Status: Acute Assessment and Plan: -----At this time is felt to be secondary to viral syndrome. WBC slightly improved today. H&H low but stable. No evidence of acute bleeding at this time but will monitor the ecchymosis at R fem harvest site. Monitor CBC. Continue B12 and folic acid supplementation. Monitor for bleeding with systemic anticoagulation. (8) Postoperative infection: Code(s): T81.40XA - Infection following a procedure, unspecified, initial encounter Status: Acute Assessment and Plan: ----- patient's harvest site on the right thigh appeared to be draining serous yellow fluid by the previous provider. This was cultured and the sensitivities are back. Will stop vancomycin and start oxacillin. He does not appear clinically infected at this time. continue Bactroban
[2019-11-22] MEDS: ATORVASTATIN 40 MG TABLET PO (21:34)
[2019-11-23] VITALS (13 sets, daily range): BP systolic 101–128; BP diastolic 50–77; PULSE 66–93; RESP 16–18; TEMP 36.6–38.7; O2SAT 92–96
[2019-11-23] MEDS: ACETAMINOPHEN 500 MG TABLET 1000 MG PO (05:50)
[2019-11-23 06:46] LABS: Hematocrit 27.3 % (42.0-52.0); Mean Corpuscular Hemoglobin 31.3 pg (26-34); Mean Corpuscular Volume 94.8 fl (80-100); Mean Platelet Volume 10.5 fl (7.4-10.4); Platelet Count Result 176 k/mm3 (150-375); Red Blood Count 2.88 M/mm3 (4.6-6.20); Red Cell Distribution Width 18.1 % (11.5-14.5); White Blood Count 2.1 K/mm3 (4.5-10.0)
[2019-11-23 06:59] LABS: Alanine Aminotransferase 158 U/L (4-50); Albumin Level 2.8 g/dL (3.5-5.1); Alkaline Phosphatase 100 U/L (38-126); Anion Gap 5 mmol/L (8-16); Aspartate Amino Transferase 125 U/L (17-59); Bilirubin,Total 0.8 mg/dL (0.2-1.3); Blood Urea Nitrogen 14 mg/dL (9-20); Calcium 7.7 mg/dL (8.4-10.2); Carbon Dioxide 24 mmol/L (22-30); Chloride 107 mmol/L (98-107); Estimated CRCL calculation 73 ml/min; Estimated Glomerular Filt Rate > 60; Glucose 118 mg/dL (75-110); Sodium 136 mmol/L (137-145)
[2019-11-23 07:21] LABS: Potassium 3.9 mmol/L (3.4-5.0)
[2019-11-23] MEDS: ASPIRIN 81 MG CHEWABLE TABLET PO (10:11)
[2019-11-23] MEDS: FOLIC ACID 0.4 MG TABLET 0.8 MG PO (10:11)
[2019-11-23] MEDS: APIXABAN 5 MG TABLET PO ×2 (10:11→16:35)
[2019-11-23] MEDS: CYANOCOBALAMIN 500 MCG TABLET PO (10:11)
[2019-11-23] MEDS: CYANOCOBALAMIN 1,000 MCG TABLET 2000 MCG PO (10:11)
[2019-11-23] MEDS: PANTOPRAZOLE 40 MG TABLET PO (10:12)
[2019-11-23] MEDS: MULTIVITAMINS /C LUTEIN (CENTRUM SILVER) TABLET *BKC 1 TAB PO (10:12)
[2019-11-23] MEDS: MUPIROCIN 2% OINT 22 GM TUBE 1 APPLIC TOPICAL ×2 (10:22→21:17)
--- NOTE | 2019-11-23 13:03 | PCDIET ---
Nutrition Follow-Up Complete: Inadequate Oral Intake as related to COVID + as evidenced by poor po intake/weight loss of 20 ibs in less than 1 month. Adequate Intake of at least 75% of meals/supplements Goal: Goal met. Continue current goal. Pt current nutrition is Heart Healthy + Ensure Compact. Nutrition recommendation: Agree Last recorded weight is 93.7 kg, no new wt Bowel Motility:11/21 Labs Reviewed:13.9 C reactive, Albumin 2.8, Na 136, Mg 2.4, Glucose 118, 125 AST, 158 ALT, Ferritin 1200 Meds Noted: B12, Folic Acid, MTV, Miralax Additional Notes: Pt states appetite is good. He ate 100% of breakfast and is drinking ensure compact to help meet needs BID. Due to elevated markers of inflammation, recommend addition of Vitamin C if appropriate with other meds. We will continue to monitor for adequate intake every 5 days.
--- NOTE | 2019-11-23 14:17 | PM.PNCARD ---
Progress Note: A&P Assessment and Plan (1) Orthostatic hypotension: Code(s): I95.1 - Orthostatic hypotension Status: Acute Assessment and Plan: feels better and less orthostatic (2) Coronary artery disease: Qualifiers: Coronary Disease-Associated Artery/Lesion type: bypass graft [place] vs. transplanted heart: [place] heart Associated angina: without angina Qualified Code(s): I25.810 - Atherosclerosis of coronary artery bypass graft(s) without angina pectoris Code(s): I25.10 - Atherosclerotic heart disease of [place] coronary artery without angina pectoris Status: Chronic Assessment and Plan: S/P CABG, stable. (3) Postoperative atrial fibrillation: Code(s): I97.89 - Other postprocedural complications and disorders of the circulatory system, not elsewhere classified; I48.91 - Unspecified atrial fibrillation Status: Resolved Assessment and Plan: Metoprolol on hold, amiodarone DC'd. Still on Eliquis. No clinical recurrence. (4) COVID-19: Code(s): U07.1 - COVID-19 Status: Acute Assessment and Plan: Fever, CXR showed possible pneumonia. Interestingly his WBC has fallen to 2.1 K. On vanc and Zosyn. On Eliquis for post-op a fib; would keep on this for now. Treatment per hospitalists. (5) Fever: Code(s): R50.9 - Fever, unspecified Status: Acute Assessment and Plan: No phlebitis and inscisions healing well except perhaps RLE vein harvest site which has a small amount of drainage and growing Gm + cocci. ON Vanc and Zosyn. Treatment per hospitalists. (6) Hypokalemia: Code(s): E87.6 - Hypokalemia Status: Acute Assessment and Plan: normalized Subjective Date/time seen: 11/23/19 14:17 Interval history: Mr. Call is a 74yo M admitted due to orthostatic hypotension and fevers following recent 2-vessel CABG at [facility] 10/31/19. Found to be COVID positive. date of [id number]/23/2019: he seems more dyspneic today but he states that he feels fine. He actually states that he feels better and is no longer dizzy and less weak. No chest pain or shortness of breath at rest subjectively Review of Systems Constitutional: Constitutional: Reports chills, Reports fatigue, Reports lethargy and Reports weakness Eyes: Eyes: Reports no additional eye complaints ENT: Reports system reviewed and no additional complaints, except as documented and Denies nasal congestion Cardiovascular: Cardiovascular: Reports as per HPI, Denies chest pain, Denies pedal edema, Denies leg edema, Reports lightheadedness, Denies palpitations and Reports dyspnea Respiratory: Respiratory: Reports no additional respiratory complaints, Denies chest congestion, Reports cough and Reports dyspnea Gastrointestinal: Gastrointestinal: Reports no additional gastrointestinal complaints and Denies abdominal pain Genitourinary: Genitourinary: Denies dysuria Musculoskeletal: Musculoskeletal: Reports no additional musculoskeletal complaints Integumentary/Breasts: Skin/Breast: Reports system reviewed and no additional complaints, except as docu, Denies erythema and Denies rash Neurologic: Reports system reviewed and no additional complaints, except as documented, Reports as per HPI and Reports weakness Psychiatric: Psychiatric: Reports no additional psychiatric complaints Endocrine: Endocrine: Reports no additional endocrine complaints, Reports fatigue and Denies palpitations Hematologic/Lymphatic: Hematologic/Lymphatic: Reports no additional hematologic/lymphatic complaints Allergic/Immunologic: Allergic/Immunologic: Reports no additional allergic/immunologic complaints Exam Narrative: Exam Narrative: Appears dyspn
--- NOTE | 2019-11-23 16:23 | PM.IMPN ---
Progress Note: A&P Assessment and Plan (1) COVID-19: Code(s): U07.1 - COVID-19 Status: Acute Assessment and Plan: ---- COVID positive November 18, 2019 and symptoms began around the . He did have a CABG on the at [facility] but afterwards his had friends over and thinks that is how he got it. His is positive too. He has not had any cough or shortness of breath but just weakness. He has not needed oxygen therefore does not qualify for remdesivir or decadron at this time. We will continue to monitor. MDI inhaler as needed (2) Orthostatic hypotension: Code(s): I95.1 - Orthostatic hypotension Status: Acute Assessment and Plan: -----resolved. Patient is feeling better. Likely discharge home tomorrow. Could be due to his blood pressure medications but those have been held and he is not getting much better. At this time will continue to use Andrea hose but if he does not improve may need to give him a small amount of fluids. CXR improving. Continue with cardiology's recommendations (3) Coronary artery disease: Qualifiers: Coronary Disease-Associated Artery/Lesion type: bypass graft [place] vs. transplanted heart: [place] heart Associated angina: without angina Qualified Code(s): I25.810 - Atherosclerosis of coronary artery bypass graft(s) without angina pectoris Code(s): I25.10 - Atherosclerotic heart disease of [place] coronary artery without angina pectoris Status: Chronic Assessment and Plan: -----History of cardiac stenting in the past and recent 2-vessel CABG at [facility] 10/31/19. Stable, no chest pain today. Incision clean and dry. Continue cardiology recommendations. (4) Postoperative atrial fibrillation: Code(s): I97.89 - Other postprocedural complications and disorders of the circulatory system, not elsewhere classified; I48.91 - Unspecified atrial fibrillation Status: Resolved Assessment and Plan: -----Per records, patient experienced postoperative A fib for which he was treated with amiodarone. He has had no further instances of such and amio has been discontinued. Cardiology following. continue Eliquis (5) Hyperlipidemia: Qualifiers: Hyperlipidemia type: unspecified Qualified Code(s): E78.5 - Hyperlipidemia, unspecified Code(s): E78.5 - Hyperlipidemia, unspecified Status: Chronic Assessment and Plan: -----Continue with atorvastatin. (6) Hypertension: Qualifiers: Hypertension type: essential hypertension Qualified Code(s): I10 - Essential (primary) hypertension Code(s): I10 - Essential (primary) hypertension Status: Chronic Assessment and Plan: -----Patient has had orthostatic hypotension with variable BPs. Metoprolol held. Continue to monitor BP closely. (7) Pancytopenia: Code(s): D61.818 - Other pancytopenia Status: Acute Assessment and Plan: -----At this time is felt to be secondary to viral syndrome. WBC slightly improved today. H&H low but stable. No evidence of acute bleeding at this time but will monitor the ecchymosis at R fem harvest site. Monitor CBC. Continue B12 and folic acid supplementation. Monitor for bleeding with systemic anticoagulation. Will need f/u with hematology (8) Postoperative infection: Code(s): T81.40XA - Infection following a procedure, unspecified, initial encounter Status: Acute Assessment and Plan: ----- patient's harvest site on the right thigh appeared to be draining serous yellow fluid by the previous provider. This was cultured and the sensitivities are back. vancomycin stopped and oxacillin continued. Will cover with steri-strip. He does not appear clinically infected at this time. continue Bactroban to the site as well Subjective Date/time seen: 11/23/19 16:23 Interval history: Pt is a 74-year-old male here for COVID-19. Amisha
[2019-11-23] MEDS: ATORVASTATIN 40 MG TABLET PO (21:17)
[2019-11-24] VITALS (8 sets, daily range): BP systolic 98–150; BP diastolic 65–109; PULSE 82–98; RESP 18–22; TEMP 36.6–36.9; O2SAT 92–96
[2019-11-24] MEDS: traMADol HCL 50 MG TABLET 100 MG PO (05:51)
[2019-11-24 06:51] LABS: Hematocrit 27.9 % (42.0-52.0); Hemoglobin 9.1 g/dL (14.0-18.0); Mean Corpuscular HGB Conc 32.6 g/dl (32-36); Mean Corpuscular Hemoglobin 30.8 pg (26-34); Mean Corpuscular Volume 94.6 fl (80-100); Mean Platelet Volume 11.8 fl (7.4-10.4); Platelet Count Result 182 k/mm3 (150-375); Red Blood Count 2.95 M/mm3 (4.6-6.20); Red Cell Distribution Width 18.4 % (11.5-14.5); White Blood Count 3.1 K/mm3 (4.5-10.0)
[2019-11-24 07:11] LABS: Alanine Aminotransferase 172 U/L (4-50); Alkaline Phosphatase 108 U/L (38-126); Anion Gap 6 mmol/L (8-16); Aspartate Amino Transferase 107 U/L (17-59); Bilirubin,Total 0.8 mg/dL (0.2-1.3); Blood Urea Nitrogen 15 mg/dL (9-20); CRP 5.3 mg/dL (<1.0); Calcium 7.9 mg/dL (8.4-10.2); Carbon Dioxide 25 mmol/L (22-30); Chloride 106 mmol/L (98-107); Estimated CRCL calculation 67 ml/min; Estimated Glomerular Filt Rate > 60; Glucose 111 mg/dL (75-110); Magnesium 2.2 mg/dL (1.6-2.3); Sodium 137 mmol/L (137-145)
[2019-11-24 08:31] LABS: Hepatitis B Surface Antigen Negative (Negative)
[2019-11-24 08:37] LABS: HAV RESULT Negative (Negative); Hepatitis B Core IgM Result Negative (Negative)
[2019-11-24 08:49] LABS: Hepatitis C Virus Antibody Negative (Negative)
[2019-11-24] MEDS: ASPIRIN 81 MG CHEWABLE TABLET PO (09:24)
[2019-11-24] MEDS: PANTOPRAZOLE 40 MG TABLET PO (09:25)
[2019-11-24] MEDS: APIXABAN 5 MG TABLET PO (09:25)
[2019-11-24] MEDS: CYANOCOBALAMIN 1,000 MCG TABLET 2000 MCG PO (09:25)
[2019-11-24] MEDS: MUPIROCIN 2% OINT 22 GM TUBE 1 APPLIC TOPICAL (09:25)
[2019-11-24] MEDS: MULTIVITAMINS /C LUTEIN (CENTRUM SILVER) TABLET *BKC 1 TAB PO (09:25)
[2019-11-24] MEDS: CYANOCOBALAMIN 500 MCG TABLET PO (09:25)
[2019-11-24] MEDS: FOLIC ACID 0.4 MG TABLET 0.8 MG PO (09:25)
--- NOTE | 2019-11-24 11:42 | PM.DS ---
DS: Admitting Diagnosis Admitting Diagnosis Admitting Diagnosis: orthostatic hypotension/weakness DS: Discharge Diagnosis Discharge Diagnosis (1) COVID-19: Code(s): U07.1 - COVID-19 Status: Acute Assessment and Plan: ---- COVID positive November 18, 2019 and symptoms began around the . He did have a CABG on the at [facility] but afterwards his had friends over and thinks that is how he got it. His is positive too. He has not had any cough or shortness of breath but just weakness. He has not needed oxygen therefore did not qualify for remdesivir or decadron. Educated on quarantine guidelines (2) Orthostatic hypotension: Code(s): I95.1 - Orthostatic hypotension Status: Acute Assessment and Plan: -----resolved. Patient is feeling better. could be due to his blood pressure medications. He is to continue pattie hose. CXR improving. F/u with cardiology's recommendations (3) Coronary artery disease: Qualifiers: Coronary Disease-Associated Artery/Lesion type: bypass graft [place] vs. transplanted heart: [place] heart Associated angina: without angina Qualified Code(s): I25.810 - Atherosclerosis of coronary artery bypass graft(s) without angina pectoris Code(s): I25.10 - Atherosclerotic heart disease of [place] coronary artery without angina pectoris Status: Chronic Assessment and Plan: -----History of cardiac stenting in the past and recent 2-vessel CABG at [facility] 10/31/19. Stable, no chest pain today. Incision clean and dry. Continue cardiology recommendations. (4) Postoperative atrial fibrillation: Code(s): I97.89 - Other postprocedural complications and disorders of the circulatory system, not elsewhere classified; I48.91 - Unspecified atrial fibrillation Status: Resolved Assessment and Plan: -----Per records, patient experienced postoperative A fib for which he was treated with amiodarone. He has had no further instances of such and amio has been discontinued. Cardiology following. continue Eliquis (5) Hyperlipidemia: Qualifiers: Hyperlipidemia type: unspecified Qualified Code(s): E78.5 - Hyperlipidemia, unspecified Code(s): E78.5 - Hyperlipidemia, unspecified Status: Chronic Assessment and Plan: -----Continue with atorvastatin. (6) Hypertension: Qualifiers: Hypertension type: essential hypertension Qualified Code(s): I10 - Essential (primary) hypertension Code(s): I10 - Essential (primary) hypertension Status: Chronic Assessment and Plan: -----Patient has had orthostatic hypotension with variable BPs. Metoprolol held. Continue to monitor BP closely. (7) Pancytopenia: Code(s): D61.818 - Other pancytopenia Status: Acute Assessment and Plan: -----At this time is felt to be secondary to viral syndrome. WBC slightly improved today. H&H low but stable. No evidence of acute bleeding at this time but will monitor the ecchymosis at R fem harvest site. Monitor CBC. Continue B12 and folic acid supplementation. Monitor for bleeding with systemic anticoagulation. Will need f/u with hematology (8) Postoperative infection: Code(s): T81.40XA - Infection following a procedure, unspecified, initial encounter Status: Acute Assessment and Plan: ----- patient's harvest site on the right thigh appeared to be draining serous yellow fluid by the previous provider. This was cultured and the sensitivities are back. vancomycin stopped and started on oxacillin and completed abx while hospitalized. DS: Summary Hospital Course Reason for hospitalization: covid, post op infx Hospital Course: Patient is a 74-year-old male who presented emergency room for after having a CABG done October 31 at [facility]. He was found to be COVID-19 positive the mission as well. ER temp 98.4?, pulse 81, respirator
--- NOTE | 2019-11-24 12:23 | PM.PNCARD ---
Progress Note: A&P Assessment and Plan (1) Orthostatic hypotension: Code(s): I95.1 - Orthostatic hypotension Status: Acute Assessment and Plan: feels better and less orthostatic (2) Coronary artery disease: Qualifiers: Coronary Disease-Associated Artery/Lesion type: bypass graft [place] vs. transplanted heart: [place] heart Associated angina: without angina Qualified Code(s): I25.810 - Atherosclerosis of coronary artery bypass graft(s) without angina pectoris Code(s): I25.10 - Atherosclerotic heart disease of [place] coronary artery without angina pectoris Status: Chronic Assessment and Plan: S/P CABG, stable. (3) Postoperative atrial fibrillation: Code(s): I97.89 - Other postprocedural complications and disorders of the circulatory system, not elsewhere classified; I48.91 - Unspecified atrial fibrillation Status: Resolved Assessment and Plan: Metoprolol on hold, amiodarone DC'd. Still on Eliquis. No clinical recurrence. (4) COVID-19: Code(s): U07.1 - COVID-19 Status: Acute Assessment and Plan: Fever, CXR showed possible pneumonia. Interestingly his WBC has fallen to 2.1 K. On vanc and Zosyn. On Eliquis for post-op a fib; would keep on this for now. Treatment per hospitalists. (5) Fever: Code(s): R50.9 - Fever, unspecified Status: Acute Assessment and Plan: No phlebitis and inscisions healing well except perhaps RLE vein harvest site which has a small amount of drainage and growing Gm + cocci. ON Vanc and Zosyn. Treatment per hospitalists. (6) Hypokalemia: Code(s): E87.6 - Hypokalemia Status: Acute Assessment and Plan: normalized Okay for discharge from my perspective. Home on Eliquis and aspirin and statin. Hold metoprolol, amiodarone for now. Potassium should be stopped also Subjective Date/time seen: 11/24/19 12:23 Interval history: Mr. Call is a 74yo M admitted due to orthostatic hypotension and fevers following recent 2-vessel CABG at [facility] 10/31/19. Found to be COVID positive. date of ecwmysj1211/24/2019: weak but overall doing okay without any muscle aches or dizziness. No chest pain or shortness of breath. Review of Systems Constitutional: Constitutional: Reports chills, Reports fatigue, Reports lethargy and Reports weakness Eyes: Eyes: Reports no additional eye complaints ENT: Reports system reviewed and no additional complaints, except as documented and Denies nasal congestion Cardiovascular: Cardiovascular: Reports as per HPI, Denies chest pain, Denies pedal edema, Denies leg edema, Reports lightheadedness, Denies palpitations and Reports dyspnea Respiratory: Respiratory: Reports no additional respiratory complaints, Denies chest congestion, Reports cough and Reports dyspnea Gastrointestinal: Gastrointestinal: Reports no additional gastrointestinal complaints and Denies abdominal pain Genitourinary: Genitourinary: Denies dysuria Musculoskeletal: Musculoskeletal: Reports no additional musculoskeletal complaints Integumentary/Breasts: Skin/Breast: Reports system reviewed and no additional complaints, except as docu, Denies erythema and Denies rash Neurologic: Reports system reviewed and no additional complaints, except as documented, Reports as per HPI and Reports weakness Psychiatric: Psychiatric: Reports no additional psychiatric complaints Endocrine: Endocrine: Reports no additional endocrine complaints, Reports fatigue and Denies palpitations Hematologic/Lymphatic: Hematologic/Lymphatic: Reports no additional hematologic/lymphatic complaints Allergic/Immunologic: Allergic/Immunologic: Reports no additional allergic/immunologic com
== END 2019-11-24 14:10 | disposition home health service (06) | DRG 177 ==
LOC: ANHED 11:28 → ANH2MED 14:52 → ANH3MEDSUR 11-18 09:48
PROVIDERS: Nurse Practitioner; Physician Assistant; Admitting Provider Internal Medicine; Emergency Provider Emergency Medicine; PCP Family Medicine; Visit Provider Family Medicine
DX: U07.1 COVID-19 (principal); J12.89 Other viral pneumonia; Z95.1 Presence of aortocoronary bypass graft; T81.41XA Infection following a procedure, superficial incisional surgical site, initial encounter; K21.9 Gastro-esophageal reflux disease without esophagitis; E78.5 Hyperlipidemia, unspecified; F41.9 Anxiety disorder, unspecified; I10 Essential (primary) hypertension; I25.10 Atherosclerotic heart disease of native coronary artery without angina pectoris; D64.9 Anemia, unspecified; E87.6 Hypokalemia
CPT/HCPCS: 36415; 51701; 70450; 71045; 80048; 80053; 80074; 80076; 80202; 81001; 82565; 82728; 83605; 83615; 83735; 84100; 84443; 85025; 85027; 85610; 85652; 85730; 86140; 87040; 87070; 87077; 87186; 87205; 87635; 93005; 96361; 96365; 96366; 96367; 97110; 97161; 97165; 97530; 97535; 99285; A9270; C9803; G0378; J0131; J0290; J2543; J2700; J3370; J7030; U0003

== ENCOUNTER 2019-12-13 08:48 | Inpatient (IN) | payer MEDICARE, SELFPAY ==
[2019-12-13] VITALS (21 sets, daily range): BP systolic 90–141; BP diastolic 65–95; PULSE 88–109; RESP 16–31; TEMP 36.1–36.8; O2SAT 88–98; BMI 20.9
--- NOTE | ~2019-12-13 | XR_ITS ---
XR chest 1V portable 12/15/2019 11:19 Indication: Pneumonia Procedure: AP portable chest Comparison: Comparison to multiple prior studies sequentially, with oldest reviewed study dated 07/07. Findings: Status post median sternotomy for CABG. Heart size normal. Left basilar airspace disease alexander s developed, consistent with pneumonia. No pleural effusion, edema or pneumothorax. Impression: 1: Developing left basilar airspace disease, compatible with pneumonia. Reviewed, dictated and finalized at location A. Impression: 1: Developing left basilar airspace disease, compatible with pneumonia.
--- NOTE | ~2019-12-13 | XR_ITS ---
EXAMINATION: XR chest 2V EXAM DATE: 12/13/2019 09:24 INDICATION: Generalized weakness. TECHNIQUE: Frontal and lateral projections of the chest obtained and reviewed. Comparison is made to prior examination from 11/22/2019. FINDINGS: There is patchy bilateral ill-defined airspace disease, more pronounced in some regions th an on prior study. Most likely acute infectious process, please clinically correlate and consider exc luding COVID-19. There is no pneumothorax suspected. There are no pleural effusions. Cardiomediastina l silhouette is normal. Sternotomy wires are present without findings to suggest sternal dehiscence. There are no osseous abnormalities identified. IMPRESSION: Patchy bilateral acute airspace disease with mild progression in some regions. Can't excl ude COVID-19. Reviewed, dictated and finalized at location B. IMPRESSION: Patchy bilateral acute airspace disease with mild progression in so me regions. Can't exclude COVID-19.
--- NOTE | ~2019-12-13 | CT_ITS ---
EXAMINATION: CT abdomen pelvis w con DATE: 12/13/2019 11:07 INDICATION: Epigastric abdominal pain. TECHNIQUE: Computed tomography (CT) of the abdomen and pelvis was performed with 100 mL Omnipaque 350 intravenous contrast. Automated exposure control and iterative reconstruction technique were employe d. The dose-length product was 603.36 mGy-cm. COMPARISON: Chest CT 02/18/2017 FINDINGS: The visualized portions of the lung bases demonstrate patchy airspace and groundglass opaci ties in the lower lobes, right middle lobe, and lingula with architectural distortion. A 6 mm nodule in right lower lobe is new from 02/18/2017. Again seen are two 4 mm nodules in left lower lobe, likel y benign. Again seen are two 4 mm nodules in right middle lobe, likely benign. No pleural effusion. T he heart size is normal. There are coronary artery calcifications. No pericardial effusion. There are changes of recent coronary bypass grafting. There is a 4 mm cyst in the liver. Calcifications in the spleen are consistent with old granulomatous disease. The pancreas, adrenal glands, and left kidney are normal. There is an 8 mm cyst in right kidney. The prostate is mildly enlarged. There are no dila pattie loops of bowel. The appendix is not visualized. There are no pathologically enlarged lymph nodes. There is no free intraperitoneal fluid. There is mild thoracolumbar spondylosis. IMPRESSION: 1. Multifocal lung disease, consistent with COVID-19 pneumonia. Reviewed, dictated and finalized at location A.
--- NOTE | 2019-12-13 08:57 | ECG_ITS ---
Measurements Intervals [place] Rate: 101 P: 52 [place]: 183 QRS: -10 QRSD: 136 T: 162 QT: 379 QTc: 493 Interpretive Statements SINUS TACHYCARDIA POSSIBLE LEFT ATRIAL ENLARGEMENT LEFT BUNDLE BRANCH BLOCK ABNORMAL ECG Electronically Signed On 12-13-2019 10:10:26 CDT by Andrei Hadley D.O.
--- NOTE | 2019-12-13 09:16 | ED.WEAKNESS ---
HPI - Weakness General Chief complaint: Weakness <BLANCA Moncada Last Filed: 12/13/19 13:25> Stated complaint: WEAKNESS <BLANCA Moncada Last Filed: 12/13/19 13:25> Time Seen by Provider: 12/13/19 09:00 <BLANCA Moncada Last Filed: 12/13/19 13:25> Source: patient, family and old records reviewed <BLANCA Moncada Last Filed: 12/13/19 13:25> Mode of arrival: EMS <BLANCA Moncada Last Filed: 12/13/19 13:25> Limitations: no limitations <BLANCA Moncada Last Filed: 12/13/19 13:25> History of Present Illness HPI Narrative: Patient is a 74-year-old male who presents with several days duration of worsening weakness worse with ambulation activity patient was seen by primary care yesterday and had out patient labs ordered for concern for weakness patient presents today with worsening weakness. Patient has extensive history to include recent CABG as well as was COVID positive in October on the when his symptoms began shortly thereafter around the he had CABG on the at [facility] patient's was also positive for COVID patient was treated in hospital and discharged at the beginning of November patient has been having home health at home getting therapy and having a home health nurse. Patient on arrival notes he is now having upper abdominal discomfort that radiates to the back. Patient denies rectal bleeding melena nausea vomiting fever chills or URI symptoms or any chest pain. Patient does note he a has exertional dyspnea and feels weak with standing <BLANCA Moncada Last Filed: 12/13/19 13:25> Related Data Home medications: Home Medications Medication Instructions Recorded Confirmed Centrum Silver 1 tablet PO DAILY 09/25/19 11/17/19 alprazolam [Xanax] 0.5 mg PO DAILY PRN 09/25/19 11/17/19 aspirin 81 mg PO DAILY 09/25/19 11/17/19 atorvastatin [Lipitor] 40 mg PO HS 09/25/19 11/17/19 pantoprazole [Protonix] 40 mg PO QAM 09/25/19 11/17/19 Eliquis 5 mg PO BID 11/17/19 11/17/19 Vitamin B-12 2,500 mg PO DAILY 11/17/19 11/17/19 docusate sodium [Colace] 100 mg PO DAILY 11/17/19 11/17/19 folic acid 0.8 mg PO DAILY 11/17/19 11/17/19 polyethylene glycol 3350 [Miralax] 17 g PO DAILY 11/17/19 11/17/19 tramadol 100 mg PO Q6-12H PRN 11/17/19 11/17/19 <Estiven Meyers PA-C - Last Filed: 12/13/19 13:25> Allergies/Adverse reactions: Allergies Allergy/AdvReac Type Severity Reaction Status Date / Time niacin AdvReac Nausea and Verified 12/13/19 11:05 Vomiting quinine AdvReac Dizziness Verified 12/13/19 11:05 <Estiven Meyers PA-C - Last Filed: 12/13/19 13:25> Review of Systems Review of Systems: All systems reviewed & are unremarkable except as noted in HPI and below <Estiven Meyers PA-C - Last Filed: 12/13/19 13:25> [facility] Past Medical History Medical History: Medical History Anxiety Chronic GERD Coronary artery disease 2 vessel CABG October of this yearin 2 cardiac stents 2017 Hyperlipidemia Hypertension <Estiven Meyers PA-C - Last Filed: 12/13/19 13:25> Surgical History Surgical History: Surgical History H/O heart artery stent 2 stents in 2017 History of two vessel coronary artery bypass graft 11/01/19 [facility] <Estiven Meyers PA-C - Last Filed: 12/13/19 13:25> Family History Family History: Family History (Updated 11/17/19 @ 23:56 by Sonya Freeman NP) Mother Acute myocardial infarction Hypertension Mother Heart disease Sibling Carotid artery disorder <Estiven Meyers PA-C - Last Filed: 12/13/19 13:25> Social History Social History: Social History Social History: the patient lives with his . He has 2 children. He is a full code. He has 1 child
[2019-12-13 09:57] LABS: Basophils Percent Auto 0.6 % (0.2-1.2); Eosinophils Absolute Auto 0.2 K/mm3 (0-0.3); Hemoglobin 9.2 g/dL (14.0-18.0); Immature Granulocyte Absolute 0.03 K/mm3 (0.00-0.031); Immature Granulocyte Percent A 0.9 % (0-0.5); Lymphocytes Absolute Auto 0.99 K/mm3 (0.9-3.2); Lymphocytes Percent Auto 31.3 % (18.3-44.2); Mean Corpuscular HGB Conc 31.7 g/dl (32-36); Mean Corpuscular Hemoglobin 32.1 pg (26-34); Monocytes Absolute Auto 0.3 K/mm3 (0.1-0.6); Monocytes Percent Auto 10.4 % (2.6-8.5); Neutrophils Absolute Auto 1.6 K/mm3 (1.3-6.7); Neutrophils Percent Auto 49.8 % (45.5-73.1); Platelet Count Result 195 k/mm3 (150-375); Red Blood Count 2.87 M/mm3 (4.6-6.20); Red Cell Distribution Width 23.4 % (11.5-14.5); White Blood Count 3.2 K/mm3 (4.5-10.0)
[2019-12-13 10:10] LABS: INR 1.4; Prothrombin Time 16.7 Seconds (11.1-14.7)
[2019-12-13 10:13] LABS: Lipase 54 U/L (23-300)
[2019-12-13 10:14] LABS: Alanine Aminotransferase 59 U/L (4-50); Albumin Level 3.3 g/dL (3.5-5.1); Alkaline Phosphatase 299 U/L (38-126); Anion Gap 7 mmol/L (8-16); Aspartate Amino Transferase 31 U/L (17-59); Blood Urea Nitrogen 15 mg/dL (9-20); Calcium 8.6 mg/dL (8.4-10.2); Carbon Dioxide 25 mmol/L (22-30); Chloride 104 mmol/L (98-107); Estimated Glomerular Filt Rate > 60; Glucose 128 mg/dL (75-110); Potassium 4.2 mmol/L (3.4-5.0); Sodium 136 mmol/L (137-145)
[2019-12-13 10:19] LABS: Troponin I < 0.012 ng/mL (0.000-0.034)
[2019-12-13 10:23] LABS: NT Pro B Type Natriuretic Pept 394 PG/ML (5-100)
[2019-12-13] MEDS: FAMOTIDINE 20 MG/2 ML VIAL IV PUSH ×2 (10:40→20:33)
[2019-12-13] MEDS: SODIUM CHLORIDE 0.9% IV 500 ML 999 ML IV CONT (10:40)
[2019-12-13 11:07] LABS: Lactic Acid Reflex 1.4 mmol/L (0.7-2.1)
[2019-12-13] MEDS: SODIUM CHLORIDE 0.9% IV 1,000 ML 999 ML IV CONT (12:02)
--- NOTE | 2019-12-13 12:03 | PC.NURSE ---
Pt states is feeling better after fluids and tylenol. Additional IVF initiated.
--- NOTE | 2019-12-13 14:52 | PC.NURSE ---
SBAR faxed to the floor and sent via tube. Pt updated on continued delay.
[2019-12-13 14:54] LABS: Add Urine Microscopic? NO; Appearance Urine Clear (Clear); Bilirubin Urine Negative (Negative); Blood Urine Negative (Negative); Color Urine Yellow (Yellow); Glucose Urine UA Negative (Negative); Ketones Urine Negative (Negative); Leukocyte Esterase Ur Negative LEU/UL (Negative); Mucus Urine Rare /lpf; Nitrate Urine Negative (Negative); Protein Urine Negative (Negative); RBC Urine 0-2 /hpf (0-2); Urobilinogen Urine Negative mg/dL (<2.0); WBC Urine 0-3 /hpf
[2019-12-13 14:58] LABS: Specific Grav Ur > 1.060 (1.001-1.035)
--- NOTE | 2019-12-13 14:58 | PC.NURSE ---
COVID 19 test cancelled per request of Infection Control Nurse according to CDC guidelines.
--- NOTE | 2019-12-13 15:16 | PC.NURSE ---
This patient, Aditya Call, was admitted to [facility] Surg Room 321-01. Patient/family oriented to hospital policies and general routines including ID bracelet, bed and alarms, visiting hours, pain management, procedures, bathroom and other care routines, personal items, smoking policy, room service/diet, and visiting hours. Valuables list has been completed. Information on how to activate the Rapid Response Team has been discussed. Patient/Family are encouraged to report perceived risks to care and to ask questions if they do not understand what they are told or what they should do.
[2019-12-13] MEDS: LACTATED RINGERS 1,000 ML 75 ML IV CONT (15:48)
[2019-12-13 15:59] LABS: Lactic Acid Reflex 1.1 mmol/L (0.7-2.1)
[2019-12-13 16:02] LABS: CRP 3.3 mg/dL (<1.0); Lactate Dehydrogenase 615 U/L (313-618)
[2019-12-13 16:11] LABS: Troponin I < 0.012 ng/mL (0.000-0.034)
--- NOTE | 2019-12-13 17:48 | PM.IMHP ---
H&P: HPI History of Present Illness Date/Time: 12/13/19 17:48 Chief complaint: Generalized weakness/dehydration/pneumonia Narrative: Aditya Call is a 74 year old male With history of coronary artery disease status post CABG on October 31 2019, patient was recently admitted to the hospital after he was found to be positive for COVID-19 he was here in in-hospital form November 16 to November 22, and that time he was not treated with dexamethasone or remdesvir as he did not require any oxygen, his main symptoms were fatigue and tired and he was eventually discharged on November 22, patient returns back to the emergency department with similar symptoms of being tired fatigue his states that he has a difficult time getting up from the bed, he denies any associated symptoms abdominal pain nausea or vomiting fever or chills, he denies any chest pain shortness of breath palpitation or dizziness, he states he has a good appetite and is food taste right, however he has recently lost 30 lb. though his white counts are normal and he has no fever, chest x-ray shows bilateral patchy infiltrate cannot rule out COVID-19 pneumonia will go ahead and treat the patient with superimposed bacterial pneumonia with vancomycin and Zosyn, patient is in and out of hospital he does have a risk for healthcare associated pneumonia will continue to monitor the patient as his physical condition improved will have a PT OT evaluate the patient patient will benefit from acute rehab. Review of Systems Review of Systems: All systems reviewed & are unremarkable except as noted in HPI and below PMFSH Past Medical History Medical History Anxiety Chronic GERD Coronary artery disease 2 vessel CABG October of this yearin 2 cardiac stents 2017 Hyperlipidemia Hypertension Surgical History Surgical History H/O heart artery stent 2 stents in 2017 History of two vessel coronary artery bypass graft 11/01/19 [facility] Social History Social History Social History: the patient lives with his . He has 2 children. He is a full code. He has 1 child. He is retired from [employer]. 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 Patient quit smoking years ago. He denies any alcohol marijuana or illicit drugs. Smoking packs per day: 1 Smoking cigarettes per day: 20.0 Years smoked: 10 Smoking pack-years: 10.00 Smoking status: Former smoker Tobacco type: cigarettes Second hand tobacco smoke exposure: Yes Alcohol intake: never Substance use: never Gender identity (if verbalized by the patient): Male Spiritual care concerns: No Meds Home Medications and Allergies Home Medications Medication Instructions Recorded Confirmed Type Centrum Silver 1 tablet PO DAILY 09/25/19 12/13/19 History alprazolam [Xanax] 0.5 mg PO DAILY PRN 09/25/19 12/13/19 History aspirin 81 mg PO DAILY 09/25/19 12/13/19 History atorvastatin [Lipitor] 40 mg PO HS 09/25/19 12/13/19 History pantoprazole [Protonix] 40 mg PO QAM 09/25/19 12/13/19 History Eliquis 5 mg PO BID 11/17/19 12/13/19 History Vitamin B-12 2,500 mg PO DAILY 11/17/19 12/13/19 History docusate sodium [Colace] 100 mg PO DAILY 11/17/19 12/13/19 History folic acid 0.8 mg PO DAILY 11/17/19 12/13/19 History polyethylene glycol 3350 [Miralax] 17 g PO DAILY 11/17/19 12/13/19 History tramadol 100 mg PO Q6-12H PRN 11/17/19 12/13/19 History sucralfate 1 g PO TIDWMEAL 12/13/19 12/13/19 History Allergies Allergy/AdvReac Type Severity Reaction Status Date / Time niacin AdvReac Nausea and Verified 12/13/19 11:05 Vomiting quinine AdvReac Dizziness Verified 12/13/19 11:05 Vital Signs Vital Signs - 24 hr 12/13/19 09:35 12/13/19 09:48 12/13/19 09:50 Temperature 98.1 F Pulse Rate 104 H 96 103 H Respirator
[2019-12-13] MEDS: APIXABAN 5 MG TABLET PO (18:13)
[2019-12-13] MEDS: SUCRALFATE 1 GM TABLET PO (18:14)
[2019-12-13] MEDS: ATORVASTATIN 40 MG TABLET PO (20:30)
[2019-12-14] VITALS (9 sets, daily range): BP systolic 100–109; BP diastolic 58–60; PULSE 88–107; RESP 16–18; TEMP 36.2–37; O2SAT 95–97; BMI 20.9
[2019-12-14 06:08] LABS: Basophils Percent Auto 0.7 % (0.2-1.2); Eosinophils Absolute Auto 0.2 K/mm3 (0-0.3); Hematocrit 26.8 % (42.0-52.0); Hemoglobin 8.6 g/dL (14.0-18.0); Immature Granulocyte Absolute 0.02 K/mm3 (0.00-0.031); Immature Granulocyte Percent A 0.7 % (0-0.5); Lymphocytes Absolute Auto 0.84 K/mm3 (0.9-3.2); Lymphocytes Percent Auto 27.9 % (18.3-44.2); Mean Corpuscular HGB Conc 32.1 g/dl (32-36); Mean Corpuscular Hemoglobin 32.6 pg (26-34); Mean Corpuscular Volume 101.5 fl (80-100); Monocytes Absolute Auto 0.3 K/mm3 (0.1-0.6); Monocytes Percent Auto 9.3 % (2.6-8.5); Neutrophils Absolute Auto 1.6 K/mm3 (1.3-6.7); Neutrophils Percent Auto 53.4 % (45.5-73.1); Platelet Count Result 195 k/mm3 (150-375); Red Blood Count 2.64 M/mm3 (4.6-6.20); Red Cell Distribution Width 23.1 % (11.5-14.5)
[2019-12-14 06:25] LABS: Alanine Aminotransferase 46 U/L (4-50); Alkaline Phosphatase 234 U/L (38-126); Anion Gap 5 mmol/L (8-16); Aspartate Amino Transferase 27 U/L (17-59); Bilirubin,Total 0.8 mg/dL (0.2-1.3); Blood Urea Nitrogen 11 mg/dL (9-20); CRP 3.3 mg/dL (<1.0); Calcium 8.3 mg/dL (8.4-10.2); Carbon Dioxide 26 mmol/L (22-30); Chloride 104 mmol/L (98-107); Estimated CRCL calculation 66 ml/min; Estimated Glomerular Filt Rate > 60; Glucose 129 mg/dL (75-110); Magnesium 2.1 mg/dL (1.6-2.3); Sodium 135 mmol/L (137-145)
[2019-12-14] MEDS: SUCRALFATE 1 GM TABLET PO ×3 (06:57→15:50)
[2019-12-14] MEDS: CYANOCOBALAMIN 1,000 MCG TABLET 2000 MCG PO (09:36)
[2019-12-14] MEDS: PANTOPRAZOLE 40 MG TABLET PO (09:37)
[2019-12-14] MEDS: APIXABAN 5 MG TABLET PO ×2 (09:37→15:50)
[2019-12-14] MEDS: DOCUSATE SODIUM 100 MG CAPSULE PO (09:41)
[2019-12-14] MEDS: FOLIC ACID 0.4 MG TABLET 0.8 MG PO (09:41)
[2019-12-14] MEDS: CYANOCOBALAMIN 500 MCG TABLET PO (09:42)
[2019-12-14] MEDS: ASPIRIN 81 MG CHEWABLE TABLET PO (09:42)
[2019-12-14] MEDS: MULTIVITAMINS /C LUTEIN (CENTRUM SILVER) TABLET *BKC 1 TAB PO (09:42)
[2019-12-14] MEDS: polyethylene glycoL 3350 17 GM POWD.PACK PO (09:43)
[2019-12-14] MEDS: FAMOTIDINE 20 MG/2 ML VIAL IV PUSH ×2 (12:02→20:46)
--- NOTE | 2019-12-14 14:41 | PM.IMPN ---
Progress Note: A&P Assessment and Plan (1) HCAP (healthcare-associated pneumonia): Code(s): J18.9 - Pneumonia, unspecified organism Status: Suspected Assessment and Plan: 12/14/19 14:41 Aditya Call is a 74 year old male admitted on 12/12 With history of coronary artery disease status post CABG on October 31 2019, patient was recently admitted to the hospital after he was found to be positive for COVID-19 he was here in in-hospital form November 16 to November 22, and that time he was not treated with dexamethasone or remdesvir as he did not require any oxygen, his main symptoms were fatigue and tired and he was eventually discharged on November 22, patient returns back to the emergency department with similar symptoms of being tired fatigue his states that he has a difficult time getting up from the bed, he denies any associated symptoms abdominal pain nausea or vomiting fever or chills, he denies any chest pain shortness of breath palpitation or dizziness, he states he has a good appetite and is food taste right, however he has recently lost 30 lb. though his white counts are normal and he has no fever, chest x-ray shows bilateral patchy infiltrate cannot rule out COVID-19 pneumonia will go ahead and treat the patient with superimposed bacterial pneumonia with vancomycin and Zosyn, patient is in and out of hospital he does have a risk for healthcare associated pneumonia will continue to monitor the patient as his physical condition improved will have a PT OT evaluate the patient patient will benefit from acute rehab. Today 12/13 patient stats at rest he is fine but he gets short winded with exertion, chest x-ray still show covid-19 pneumonia and we are treating him for hospital aquired pneumonia, will consult Dr. Owen will the patient benefit from dexamethasone and/or Remedivisir, further recommendations to follow. (2) Generalized weakness: Code(s): R53.1 - Weakness Status: Acute Assessment and Plan: etiology uncertain most likely secondary to pneumonia will have a PT OT evaluate the patient (3) Acute dehydration: Code(s): E86.0 - Dehydration Status: Acute Assessment and Plan: patient with recent history of diarrhea will hydrate the patient and monitor (4) COVID-19: Code(s): U07.1 - COVID-19 Status: Acute Assessment and Plan: patient was initially diagnosed with COVID-19 on [place] 24, according to CDC protocol patient is not retested nor patient he is isolated, (5) Coronary artery disease: Qualifiers: Coronary Disease-Associated Artery/Lesion type: bypass graft [place] vs. transplanted heart: [place] heart Associated angina: without angina Qualified Code(s): I25.810 - Atherosclerosis of coronary artery bypass graft(s) without angina pectoris Code(s): I25.10 - Atherosclerotic heart disease of [place] coronary artery without angina pectoris Status: Chronic Assessment and Plan: status post CABG October 302019, patient clinically stable does not have any complaint of chest pain. Subjective Date/time seen: 12/14/19 14:41 Aditya Call is a 74 year old male admitted on 12/12 With history of coronary artery disease status post CABG on October 31 2019, patient was recently admitted to the hospital after he was found to be positive for COVID-19 he was here in in-hospital form November 16 to November 22, and that time he was not treated with dexamethasone or remdesvir as he did not require any oxygen, his main symptoms were fatigue and tired and he was eventually discharged on November 22, patient returns back to the emergency department with similar symptoms of being tired fatigue his states that he has a difficult time getting up from the bed, he denies any associated symptoms abdominal pain nausea or vomiting fever or chills, he denies any chest pain shortness of breath palpitation or dizziness, he states he has a
[2019-12-14] MEDS: ATORVASTATIN 40 MG TABLET PO (20:46)
[2019-12-15] VITALS: PULSE 99
[2019-12-15 04:00] VITALS: PULSE 90
[2019-12-15 06:00] VITALS: BP 104/62; PULSE 94; RESP 18; TEMP 36.1; O2SAT 96
[2019-12-15] MEDS: SUCRALFATE 1 GM TABLET PO ×2 (06:00→11:15)
[2019-12-15 06:23] LABS: Basophils Percent Auto 0.3 % (0.2-1.2); Eosinophils Absolute Auto 0.3 K/mm3 (0-0.3); Eosinophils Percent Auto 7.5 % (0-4.4); Hemoglobin 8.2 g/dL (14.0-18.0); Immature Granulocyte Absolute 0.02 K/mm3 (0.00-0.031); Immature Granulocyte Percent A 0.6 % (0-0.5); Lymphocytes Absolute Auto 1.31 K/mm3 (0.9-3.2); Lymphocytes Percent Auto 39.2 % (18.3-44.2); Mean Corpuscular HGB Conc 31.5 g/dl (32-36); Mean Corpuscular Hemoglobin 32.7 pg (26-34); Mean Corpuscular Volume 103.6 fl (80-100); Monocytes Absolute Auto 0.4 K/mm3 (0.1-0.6); Monocytes Percent Auto 11.4 % (2.6-8.5); Neutrophils Absolute Auto 1.4 K/mm3 (1.3-6.7); Platelet Count Result 182 k/mm3 (150-375); Red Blood Count 2.51 M/mm3 (4.6-6.20); Red Cell Distribution Width 23.8 % (11.5-14.5); White Blood Count 3.3 K/mm3 (4.5-10.0)
[2019-12-15 06:34] LABS: Alanine Aminotransferase 37 U/L (4-50); Albumin Level 2.9 g/dL (3.5-5.1); Alkaline Phosphatase 198 U/L (38-126); Anion Gap 4 mmol/L (8-16); Aspartate Amino Transferase 26 U/L (17-59); Bilirubin,Total 0.6 mg/dL (0.2-1.3); Blood Urea Nitrogen 10 mg/dL (9-20); CRP 2.6 mg/dL (<1.0); Calcium 8.2 mg/dL (8.4-10.2); Carbon Dioxide 28 mmol/L (22-30); Chloride 106 mmol/L (98-107); Estimated CRCL calculation 60 ml/min; Estimated Glomerular Filt Rate > 60; Glucose 109 mg/dL (75-110); Potassium 3.7 mmol/L (3.4-5.0); Sodium 138 mmol/L (137-145)
[2019-12-15 08:00] VITALS: PULSE 92; PULSE 94; RESP 18; O2SAT 96
--- NOTE | 2019-12-15 08:44 | WPDCDIQUERY2 ---
CDI Query Clarification Request 1) - Covid 19 has been documented. Please clarify if this is a current diagnosis, a sequela of Covid 19 or a history of Covid 19. 2) HCAP pneumonia has been documented. Cannot rule out Covid 19 pneumonia - Abd CT impression: multifocal lung disease consistent with Covid 19 pneumonia - CXR patchy bilateral acute airspace disease with mild progression in some regions. Can't exclude Covid 19. Please clarify if HCAP pneumonia, Covid 19 pneumonia or both HCAP pneumonia and Covid 19 pneumonia. <Jazmyn Lyons RN - Last Filed: 12/15/19 08:53> Clarified Diagnosis (1) Pneumonia: Code(s): J18.9 - Pneumonia, unspecified organism <Jazmyn Lyons RN - Last Filed: 12/15/19 08:53> Status: Acute <Jazmyn Lyons RN - Last Filed: 12/15/19 08:53> Assessment and Plan: Patient was seen by Dr. Owen and does not suspect HCAP and does have slow progressing COVID-19 pneumonia. <Milad Tate MD - Last Filed: 12/24/19 16:57>
[2019-12-15] MEDS: polyethylene glycoL 3350 17 GM POWD.PACK PO (09:07)
[2019-12-15] MEDS: PANTOPRAZOLE 40 MG TABLET PO (09:07)
[2019-12-15] MEDS: CYANOCOBALAMIN 500 MCG TABLET PO (09:08)
[2019-12-15] MEDS: CYANOCOBALAMIN 1,000 MCG TABLET 2000 MCG PO (09:08)
[2019-12-15] MEDS: FOLIC ACID 0.4 MG TABLET 0.8 MG PO (09:08)
[2019-12-15] MEDS: ASPIRIN 81 MG CHEWABLE TABLET PO (09:08)
[2019-12-15] MEDS: DOCUSATE SODIUM 100 MG CAPSULE PO (09:08)
[2019-12-15] MEDS: FAMOTIDINE 20 MG/2 ML VIAL IV PUSH (09:09)
--- NOTE | 2019-12-15 09:31 | PCOTNOTE ---
On 12/14/19, the student, Meri Parker, provided care and completed [facility] documentation on this patient. I have reviewed the student's documentation and agree with the findings.
[2019-12-15] MEDS: APIXABAN 5 MG TABLET PO (11:15)
[2019-12-15] MEDS: MULTIVITAMINS /C LUTEIN (CENTRUM SILVER) TABLET *BKC 1 TAB PO (11:15)
[2019-12-15 12:00] VITALS: PULSE 94
--- NOTE | 2019-12-15 13:47 | WPDINFPN2 ---
Progress Note: A&P Assessment and Plan (1) Generalized weakness: Code(s): R53.1 - Weakness Status: Acute Assessment and Plan: multifactorial weakness (his CC) due to recent coronavirus, recent CABG with deconditioning, nutritional, anemia. His LLL airspace disease seen today has no clinical correlate for pneumonia, and I suspect atelectasis. REC Steroids and remdesivir predicted to have no benefit. Stop antibacterials. PT, counseled patient on slow recovery. Call if Qs Subjective Date/time seen: 12/15/19 13:47 Objective Data Vital Signs Vital Signs: Vital Signs - 24 hr 12/14/19 14:00 12/14/19 16:00 12/14/19 20:00 Temperature 36.2 C L Pulse Rate 98 94 94 Respiratory Rate 16 Blood Pressure 109/58 L Pulse Oximetry 97 12/14/19 22:00 12/15/19 00:00 12/15/19 04:00 Temperature 37.0 C Pulse Rate 99 99 90 Respiratory Rate 18 Blood Pressure 100/60 Pulse Oximetry 95 12/15/19 06:00 12/15/19 08:00 12/15/19 12:00 Temperature 36.1 C L Pulse Rate 94 94 94 Respiratory Rate 18 18 Blood Pressure 104/62 Pulse Oximetry 96 96 Intake/Output Intake/Output: Intake & Output 12/12/19 12/13/19 12/14/19 12/15/19 23:59 23:59 23:59 23:59 Intake Total 1900 1550 100 Output Total 2000 800 Balance 1900 -450 -700 Meds/Results Medications: Active Medications Generic Name Dose Route Start Last Admin Trade Name Jaspalq PRN Reason Stop Dose Admin Alprazolam 0.5 mg 12/13/19 16:56 Xanax PO DAILY PRN Anxiety Apixaban 5 mg 12/13/19 17:00 12/15/19 11:15 Eliquis PO 5 mg BID SANDRA Administration Aspirin 81 mg 12/14/19 09:00 12/15/19 09:08 Aspirin Chewable PO 81 mg DAILY SANDRA Administration Atorvastatin Calcium 40 mg 12/13/19 21:00 12/14/19 20:46 Lipitor PO 40 mg HS SANDRA Administration Cyanocobalamin 2,000 mcg 12/14/19 09:00 12/15/19 09:08 Vitamin B-12 Tab PO 2,000 mcg QAM SANDRA Administration Cyanocobalamin 500 mcg 12/14/19 09:00 12/15/19 09:08 Vitamin B-12 Tab PO 500 mcg QAM SANDRA Administration Docusate Sodium 100 mg 12/14/19 09:00 12/15/19 09:08 Colace Capsule PO 100 mg DAILY SANDRA Administration Famotidine 20 mg 12/13/19 21:00 12/15/19 09:09 Pepcid Iv IV PUSH 20 mg Q12HR SANDRA Administration Folic Acid 0.8 mg 12/14/19 09:00 12/15/19 09:08 Folic Acid PO 0.8 mg QAM SANDRA Administration Lactated Ringer's 1,000 mls @ 75 mls/hr 12/13/19 13:25 12/15/19 04:58 Lr - Lactated Ringers Iv IV CONT Not Given .[id number] SANDRA Piperacillin/Tazobactam/Dextrose 3.375 gm in 50 mls @ 100 mls/hr 12/13/19 18:00 12/15/19 11:15 Zosyn 3.375 Gm/D5w 50ml Pm IVPB 100 mls/hr Q6HR SANDRA Administration Vancomycin HCl 1,000 mg in 250 mls @ 250 mls/hr 12/13/19 18:00 12/15/19 06:36 Vancomycin 1,000 Mg/D5w 250 Ml IVPB 100 mls/hr Q18H SANDRA Administration Multivitamins/Minerals 1 tab 12/14/19 09:00 12/15/19 11:15 Centrum Silver PO 1 tab DAILY SANDRA Administration Ondansetron HCl 4 mg 12/13/19 13:25 Zofran Inj IV PUSH Q4H PRN Nausea Pantoprazole Sodium 40 mg 12/14/19 09:00 12/15/19 09:07 Protonix PO 40 mg QAM SANDRA Administration Polyethylene Glycol 17 gm 12/14/19 09:00 12/15/19 09:07 Miralax PO 17 gm DAILY SANDRA Administration Sucralfate 1 gm 12/13/19 17:00 12/15/19 11:15 Carafate PO 1 gm TIDAC SANDRA Administration Tramadol HCl 100 mg 12/13/19 16:56 Ultram PO Q6H PRN Pain Radiology Results: ITS Impressions Abdomen/Pelvis CT 12/13/19 11:18 IMPRESSION: 1. Multifocal lung disease, consistent with COVID-19 pneumonia. Chest X-Ray 12/15/19 11:46 Impression: 1: Developing left basilar airspace disease, compatible with pneumonia. Labs Labs: Laboratory Results - last 24 hr 12/15/19 12/15/19 05:49 05:49 WBC 3.3 L RBC 2.51 L Hgb 8.2 L Hct 26.0 L MCV 103.6 H MCH 32.7 MCHC 3
--- NOTE | 2019-12-15 15:01 | PM.DS ---
DS: Admitting Diagnosis Admitting Diagnosis Admitting Diagnosis: Generalized weakness/dehydration/pneumonia DS: Discharge Diagnosis Discharge Diagnosis (1) HCAP (healthcare-associated pneumonia): Code(s): J18.9 - Pneumonia, unspecified organism Status: Suspected Assessment and Plan: 12/14/19 14:41 Aditya Call is a 74 year old male admitted on 12/12 With history of coronary artery disease status post CABG on October 31 2019, patient was recently admitted to the hospital after he was found to be positive for COVID-19 he was here in in-hospital form November 16 to November 22, and that time he was not treated with dexamethasone or remdesvir as he did not require any oxygen, his main symptoms were fatigue and tired and he was eventually discharged on November 22, patient returns back to the emergency department with similar symptoms of being tired fatigue his states that he has a difficult time getting up from the bed, he denies any associated symptoms abdominal pain nausea or vomiting fever or chills, he denies any chest pain shortness of breath palpitation or dizziness, he states he has a good appetite and is food taste right, however he has recently lost 30 lb. though his white counts are normal and he has no fever, chest x-ray shows bilateral patchy infiltrate cannot rule out COVID-19 pneumonia will go ahead and treat the patient with superimposed bacterial pneumonia with vancomycin and Zosyn, patient is in and out of hospital he does have a risk for healthcare associated pneumonia will continue to monitor the patient as his physical condition improved will have a PT OT evaluate the patient patient will benefit from acute rehab. Today 12/13 patient stats at rest he is fine but he gets short winded with exertion, chest x-ray still show covid-19 pneumonia and we are treating him for hospital aquired pneumonia, will consult Dr. Owen will the patient benefit from dexamethasone and/or Remedivisir, further recommendations to follow. (2) Generalized weakness: Code(s): R53.1 - Weakness Status: Acute Assessment and Plan: etiology uncertain most likely secondary to pneumonia will have a PT OT evaluate the patient (3) Acute dehydration: Code(s): E86.0 - Dehydration Status: Acute Assessment and Plan: patient with recent history of diarrhea will hydrate the patient and monitor (4) COVID-19: Code(s): U07.1 - COVID-19 Status: Acute Assessment and Plan: patient was initially diagnosed with COVID-19 on November 12, according to CDC protocol patient is not retested nor patient he is isolated, (5) Coronary artery disease: Qualifiers: Coronary Disease-Associated Artery/Lesion type: bypass graft [place] vs. transplanted heart: [place] heart Associated angina: without angina Qualified Code(s): I25.810 - Atherosclerosis of coronary artery bypass graft(s) without angina pectoris Code(s): I25.10 - Atherosclerotic heart disease of [place] coronary artery without angina pectoris Status: Chronic Assessment and Plan: status post CABG October 302019, patient clinically stable does not have any complaint of chest pain. DS: Summary Hospital Course Reason for hospitalization: Chief complaint: orthostatic hypotension/weakness Narrative: Aditya Call is a 74 year old male Who has been complaining of some generalized weakness for approximately 4 days. The patient stated about 4 days ago he did have of fever at that time he had fever and chills and cough that was productive. The patient stated that he has not been using his incentive spirometer because his been causing him too much pain. The patient did have a 2 vessel CABG at [facility] approximately on October 31. His been seen here by [facility] more specifically Dr. joseph and . The patient stated that he was very weak today and nearly passed out. The patient sta
--- NOTE | 2019-12-15 18:54 | CONS_ITS ---
DATE OF CONSULTATION: 12/15/2019 REASON FOR CONSULTATION: Left lower lobe infiltrate and recent coronavirus infection. HISTORY OF PRESENT ILLNESS: A 74-year-old male who underwent CABG at [facility] after preop cardiac cath. Operation was performed on October 31, and he was discharged about 1 week later. He returned here on the with orthostatic hypotension, generalized weakness, temperature up to 38.3, later up to 39.2. He was given vancomycin and piperacillin tazobactam; however, his coronavirus assay returned positive and his antibacterials were stopped. He was discharged from the hospital on November 23 after another week. Though he is unclear on dates, our record indicates he was home for 2-1/2 weeks and while there, he had persistent weakness in his legs, though was able to get around with a walker. He also had home physical therapy twice weekly. He saw Dr. Ortega in followup 1 day before admission, and he was believed to be dehydrated. Dr. Ortega gave him the choice of return to emergency room or to have blood testing and chest x-ray performed on an outpatient basis. He initially chose the latter, but never had the testing done since late that evening he presented back to the emergency room and was admitted on the . He has been given piperacillin and vancomycin once again and consultation requested today. His appetite has fully recovered, though he had lost some weight. He has had no further fever. No chills or sweats. He has had some reflux esophagitis, but otherwise no chest pain, scapular pain, or spinal pain. He has a rare cough. There is no sputum production and he has had no hemoptysis. His incision over the sternum has healed well. He reports infection in the right medial knee vein graft harvest site, which is also fully healed. He has been on no antibacterials otherwise. While here with his coronavirus infection at the end of October, he did not receive corticosteroids nor remdesivir nor plasma due to the relatively mild clinical features of his illness. The patient has no COPD nor other chronic lung disease. HABITS: Ex-smoker. No alcohol. No illicit drugs. PRESENT MEDICATIONS: As above, no immunosuppressants. ALLERGIES: NIACIN, QUININE. PAST MEDICAL HISTORY: In addition to the above, CAD, hyperlipidemia, hypertension, and prior coronary stents in 2017. REVIEW OF SYSTEMS: 14-point review otherwise negative. FAMILY HISTORY: Not pertinent to his present illness. SOCIAL HISTORY: He is . Lives locally. 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 Lives locally. PHYSICAL EXAMINATION: GENERAL: This is an elderly male who appears his actual age. No acute distress. VITAL SIGNS: Afebrile. His oxygen saturation on room air shortly after admission was 88%, but was 96% 2 minutes earlier and 94% 38 minutes later. Otherwise, there has been no desaturation. He is on room air 94% currently, 18, 104/62, 94. SKIN: Warm and dry. No rashes. NODES: No cervical adenopathy. HEENT: The conjunctivae are normal. Pupils equal and round. The oral mucosa is also normal. Teeth in good repair. NECK: No meningismus, mass or thyromegaly. LUNGS: Clear to auscultation and percussion. No egophony, no fremitus, and breath sounds are vesicular. CHEST: Equal expansion. Normal AP diameter. No tenderness. CARDIAC: Normal S1, S2. Regular rate and rhythm. No murmur, gallop, or rub. Pulses 1+ and equal. ABDOMEN: Nondistended, soft. No organomegaly. No masses. Nontender. EXTREMITIES: Well perfused. No clubbing, cyanosis, or edema. He has some areas of skin hypopigmentation over his patella bilaterally, which he reports is from superficial scabs and then sun hendrickson. LABORATORY DATA: Previous coronavirus assay as above. His blood
--- NOTE | 2020-01-09 12:26 | PM.CNPUL ---
History of Present Illness History of Present Illness Consult date: 12/14/19 Chief complaint: Generalized weakness/dehydration/pneumonia Narrative: Patient was discharged before consult could be performed. [facility] Past Medical History Medical History (Updated 12/13/19 @ 13:25 by Estiven Meyers PA-C) Anxiety Chronic GERD Coronary artery disease 2 vessel CABG October of this yearin 2 cardiac stents 2016 Hyperlipidemia Hypertension Surgical History Surgical History H/O heart artery stent 2 stents in 2017 History of two vessel coronary artery bypass graft 11/01/19 [facility] Family History Family History Mother Acute myocardial infarction Hypertension Mother Heart disease Sibling Carotid artery disorder Social History Social History Social History: the patient lives with his . He has 2 children. He is a full code. He has 1 child. He is retired from [employer]. 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 Patient quit smoking years ago. He denies any alcohol marijuana or illicit drugs. Smoking packs per day: 1 Smoking cigarettes per day: 20.0 Years smoked: 10 Smoking pack-years: 10.00 Smoking status: Former smoker Tobacco type: cigarettes Second hand tobacco smoke exposure: Yes Alcohol intake: never Substance use: never Gender identity (if verbalized by the patient): Male Spiritual care concerns: No Meds Home Medications and Allergies Home Medications Medication Instructions Recorded Confirmed Type Centrum Silver 1 tablet PO DAILY 09/25/19 12/13/19 History alprazolam [Xanax] 0.5 mg PO DAILY PRN 09/25/19 12/13/19 History aspirin 81 mg PO DAILY 09/25/19 12/13/19 History atorvastatin [Lipitor] 40 mg PO HS 09/25/19 12/13/19 History pantoprazole [Protonix] 40 mg PO QAM 09/25/19 12/13/19 History Eliquis 5 mg PO BID 11/17/19 12/13/19 History Vitamin B-12 2,500 mg PO DAILY 11/17/19 12/13/19 History docusate sodium [Colace] 100 mg PO DAILY 11/17/19 12/13/19 History folic acid 0.8 mg PO DAILY 11/17/19 12/13/19 History polyethylene glycol 3350 [Miralax] 17 g PO DAILY 11/17/19 12/13/19 History tramadol 100 mg PO Q6-12H PRN 11/17/19 12/13/19 History sucralfate 1 g PO TIDWMEAL 12/13/19 12/13/19 History acetaminophen 650 mg/20.3 mL oral 650 mg PO Q8H PRN ml 01/04/20 History solution Allergies Allergy/AdvReac Type Severity Reaction Status Date / Time niacin AdvReac Nausea and Verified 01/04/20 13:46 Vomiting quinine AdvReac Dizziness Verified 01/04/20 13:46 Results Laboratory Findings CBC and BMP: 12/15/19 05:49 12/15/19 05:49 ABG, PT/INR, D-dimer: PT/INR, D-dimer PT 16.7 Seconds (11.1-14.7) H 12/13/19 09:47 INR 1.4 12/13/19 09:47 Abnormal lab findings: Abnormal Labs 12/13/19 12/13/19 12/13/19 09:47 09:47 09:47 WBC 3.2 L RBC 2.87 L Hgb 9.2 L Hct 29.0 L MCV 101.0 H MCHC 31.7 L RDW 23.4 H MPV 11.0 H Immature Gran % (Auto) 0.9 H Neut % (Auto) [place] % (Auto) 10.4 H Eos % (Auto) 7.0 H Lymph # (Auto) PT 16.7 H APTT 39.0 H Sodium 136 L Anion Gap 7 L Glucose 128 H Calcium Ferritin ALT 59 H Alkaline Phosphatase 299 H C-Reactive Protein NT-Pro-B Natriuret Pep Total Protein Albumin 3.3 L Procalcitonin Ur Specific [place] 12/13/19 12/13/19 12/13/19 09:47 14:30 15:34 WBC RBC Hgb Hct MCV MCHC RDW MPV Immature Gran % (Auto) Neut % (Auto) [place] % (Auto) Eos % (Auto) Lymph # (Auto) PT APTT Sodium Anion Gap Glucose Calcium Ferritin 409.00 H ALT Alkaline Phosphatase C-Reactive Protein NT-Pro-B Natriuret Pep 394 H Total Protein Albumin Procal
== END 2019-12-15 15:40 | disposition home health service (06) | DRG 177 ==
LOC: ANHED 13:25 → ANH3MEDSUR 13:58
PROVIDERS: Emergency Medicine Emergency Medical Services; Admitting Provider Family Medicine; Emergency Provider Emergency Medicine; PCP Family Medicine; Visit Provider Family Medicine
DX: U07.1 COVID-19 (principal); J15.9 Unspecified bacterial pneumonia; J12.89 Other viral pneumonia; I25.810 Atherosclerosis of coronary artery bypass graft(s) without angina pectoris; Y95 Nosocomial condition; I95.1 Orthostatic hypotension; E86.0 Dehydration; R53.1 Weakness; R53.83 Other fatigue; E78.5 Hyperlipidemia, unspecified; I10 Essential (primary) hypertension; K21.9 Gastro-esophageal reflux disease without esophagitis; Z87.891 Personal history of nicotine dependence; Z79.01 Long term (current) use of anticoagulants; Z79.82 Long term (current) use of aspirin; Z95.1 Presence of aortocoronary bypass graft; Z95.5 Presence of coronary angioplasty implant and graft
CPT/HCPCS: 36415; 71045; 71046; 74177; 80053; 81003; 82728; 83605; 83615; 83690; 83735; 83880; 84145; 84484; 85025; 85610; 85730; 86140; 86850; 86900; 86901; 87040; 93005; 96361; 96365; 96367; 96375; 96376; 97161; 97165; 99285; A9270; G0378; J0131; J2543; J3370; J7030; J7040; J7120; Q9967

== ENCOUNTER 2019-12-27 12:19 | Outpatient (CLI) | payer MEDICARE, SELFPAY ==
--- NOTE | ~2019-12-27 | XR_ITS ---
EXAMINATION: XR chest 2V EXAM DATE: 12/27/2019 12:52 INDICATION: Shortness breath. History of chronic virus. TECHNIQUE: Frontal and lateral projections of the chest obtained and reviewed. Comparison is made to prior examination from 12/15/2019. FINDINGS: Again there is moderate amount of ill-defined left lower lobe and smaller amount of right lower lobe airspace disease, with interval improvement. Previously seen right upper lobe airspace dis ease has resolved. Sternotomy wires are present without findings to suggest sternal dehiscence. Cardi omediastinal silhouette is normal. There is no pneumothorax suspected. There are no pleural effusions . There are no osseous abnormalities identified. IMPRESSION: Moderate left, smaller right lower lobe airspace disease with interval improvement. Could be persistent atelectasis from recent infection. Persistent infection not excludable. Reviewed, dictated and finalized at location B. IMPRESSION: Moderate left, smaller right lower lobe airspace disease with inter luis improvement. Could be persistent atelectasis from recent infection. Persist ent infection not excludable.
== END 2019-12-27 12:20 | disposition home or self-care (01) ==
PROVIDERS: PCP Family Medicine; Visit Provider Internal Medicine Cardiovascular Disease
DX: Z86.19 Personal history of other infectious and parasitic diseases (principal); I25.10 Atherosclerotic heart disease of native coronary artery without angina pectoris; Z95.1 Presence of aortocoronary bypass graft; R06.02 Shortness of breath; R91.8 Other nonspecific abnormal finding of lung field
CPT/HCPCS: 71046

== ENCOUNTER 2020-02-27 13:47 | Outpatient (CLI) | payer MEDICARE, SELFPAY ==
--- NOTE | 2020-03-08 12:15 | WPDPFTINT ---
PFT Interpretation PFT Interpretation: This PFT met all criteria for ATS standards and reproducibility FEV/FVC post bronchodilator 68% FEV1 79% or 2.53 liters FVC 76% or 3.70 liters TLC 102% RV 129% RV/TLC 49% DLCO 60% when adjusted for alveolar volume but not adjusted for hemoglobin Flow volume loops showed expiratory coving Impression: Mild to moderate airflow obstruction with air trapping and mildly decreased diffusion capacity. This pattern is suggestive of COPD. Clinical correlation is advised.
--- NOTE | 2020-03-08 12:17 | WPDSIXMINUTE ---
Six Minute Walk Six Minute Walk: The patients O2 sats started at 95% and dropped as low as 90% Total walk distance 274.32 meters conclusion: Although there was exertional hypoxia, it did not meet criteria for home oxygen therapy.
== END 2020-02-27 13:48 | disposition home or self-care (01) ==
PROVIDERS: PCP Family Medicine; Visit Provider Internal Medicine Critical Care Medicine
DX: Z09 Encounter for follow-up examination after completed treatment for conditions other than malignant neoplasm (principal); U07.1 COVID-19
CPT/HCPCS: 94060; 94618; 94726; 94729

== ENCOUNTER 2020-03-04 13:30 | Outpatient (CLI) | payer MEDICARE, SELFPAY ==
--- NOTE | ~2020-03-04 | CT_ITS ---
EXAMINATION: CT chest high resolution wo vt EXAM DATE: 03/04/2020 13:57 INDICATION: U07.1 - COVID-19. TECHNIQUE: Spiral CT of the chest without contrast. HRCT. Axial, coronal and sagittal images were re viewed. Coronal maximum intensity pixel images of chest reviewed. The dose-length product (DLP) for this examination was 352.48 mGy-cm. The exposure was tailored according to patient size (auto mA ex posure control), and iterative reconstruction (ASIR) was used as additional dose reduction technique. Comparison is made to prior examination from 02/18/2017. FINDINGS: There is a 5 mm right lower lobe nodule on axial image 77. Uncertain whether or not this i s one of the 2 smaller nodules seen on prior study in 2017. Some calcified right upper lobe nodules. Bibasilar subsegmental atelectasis or scarring which is new compared to prior study. Some small regio ns of basilar intralobular septal thickening and groundglass opacities, mild fibrotic change. There are no pleural or pericardial effusions. Tracheobronchial tree is patent. There is no media stinal, hilar or axillary lymphadenopathy. There is no pneumothorax. Heart normal in size. Ther e are sternotomy wires, and cardiac/coronary surgical changes. Correlate with prior history. Upper a bdomen is unremarkable. There is thoracic spondylosis without osteoblastic or osteolytic lesions id entified. IMPRESSION: 1. Interval development of small regions of basilar scarring and fibrosis. 2. Right lower lobe 5 mm nodule most likely postinfectious; follow-up chest CT recommended in 6-12 m [facility]. Reviewed, dictated and finalized at location A. [employer] IMPRESSION: 1. Interval development of small regions of basilar scarring and fibrosis. 2. Right lower lobe 5 mm nodule most likely postinfectious; follow-up chest CT recommended in 6-12 months.
== END 2020-03-04 13:31 | disposition home or self-care (01) ==
PROVIDERS: PCP Family Medicine; Visit Provider Internal Medicine Critical Care Medicine
DX: U07.1 COVID-19 (principal); R91.1 Solitary pulmonary nodule
CPT/HCPCS: 71250

== ENCOUNTER 2020-05-06 09:00 | Outpatient (RCR) | payer MEDICARE, SELFPAY ==
[2020-03-28 11:18] VITALS: BP 136/80; PULSE 67; RESP 16; TEMP 36.8; O2SAT 94
[2020-03-28 11:45] VITALS: PULSE 77
--- NOTE | 2020-04-25 08:54 | PCCPR ---
Absent Juan Jose called states he got his Covid vaccination yesterday and is not feeling well today. Hopes to resume on Wednesday.
== END 2020-05-08 11:19 | disposition home or self-care (01) ==
LOC: ANHCPREHAB 09:00
PROVIDERS: Visit Provider Nurse Practitioner Adult Health
DX: Z95.1 Presence of aortocoronary bypass graft (principal)
CPT/HCPCS: 93798

== ENCOUNTER 2020-09-17 09:54 | Outpatient (CLI) | payer MEDICARE, SELFPAY ==
--- NOTE | ~2020-09-17 | CT_ITS ---
EXAMINATION: CT diagnostic chest wo con DATE: 09/17/2020 10:17 INDICATION: Solitary pulmonary nodule TECHNIQUE: Computed tomography (CT) of the chest was performed without intravenous contrast. The dose -length product (DLP) was 150.01 mGy-cm. Automated exposure control and iterative reconstruction tech nique were employed. COMPARISON: 03/04/2020, 02/18/2017 FINDINGS: There are multiple stable nodules of the lower lobes which measure up to 5 mm. No new nodul es are identified. There is mild dependent atelectasis. The lungs are free of focal airspace opacitie s. Changes of coronary artery bypass grafting are noted. The heart size is normal. There is moderate thoracic spondylosis. Punctate calcifications in an otherwise normal spleen likely represent healed g ranulomatous disease. IMPRESSION: 1. Stable pulmonary nodules of the lower lobes, likely old granulomatous disease. Consider follow-up CT in six months. Reviewed, dictated and finalized at location B. IMPRESSION: 1. Stable pulmonary nodules of the lower lobes, likely old granulomatous diseas e. Consider follow-up CT in six months.
== END 2020-09-17 09:55 | disposition home or self-care (01) ==
PROVIDERS: PCP Physician Assistant; Visit Provider Nurse Practitioner Family
DX: R91.8 Other nonspecific abnormal finding of lung field (principal); Z86.19 Personal history of other infectious and parasitic diseases
CPT/HCPCS: 71250

== ENCOUNTER 2020-09-25 07:36 | Outpatient (CLI) | payer MEDICARE, SELFPAY ==
--- NOTE | 2020-09-25 12:31 | WPDPFTINT ---
PFT Procedure Performed PFT Procedure Performed Spirometry with Pre/Post Bronchodilator Plethysmography (Lung Vol) Diffusing Cap (DLCO) Flow Vol Loop PFT Interpretation This is a pulmonary function test with pre and post-bronchodilator spirometry, plethysmography and diffusing capacity. The test was performed and results interpreted in accordance with the 2019 and 2005 ATS/ERS Task Force guidelines respectively using the Global Lung Function Initiative-2012 reference equations. Patient demonstrated good effort and cooperation. Reproducibility criteria were met. The quality of the pre bronchodilator spirometry maneuver was Grade A and post bronchodilator spirometry maneuver was Grade A. Findings: Spirometry: there is decreased maximal expiratory airflow at low lung volumes with a concave expiratory flow tracing. The pre bronchodilator FVC is 4.17, 96% predicted. The pre bronchodilator FEV1 is 2.62 L, 81% predicted. The FEV1: FVC ratio is 63%. The post bronchodilator FVC is 4.17 L, representing no change. The post bronchodilator FEV1 is 2.78 L, representing a 6% increase. Plethysmography: The total lung capacity is 7.37 L, 99% predicted. The functional residual capacity is 4.07 L, 101% predicted. The residual volume is 3.20 L, 120% predicted. Diffusing capacity: The absolute diffusion capacity is 15.4, 60% predicted. The diffusing capacity corrected for alveolar volume is 2.90, 79% predicted. In comparison to previous pulmonary function tests on 02/27/2020 the post bronchodilator FVC is unchanged 3.70 L to 4.17 L. The post bronchodilator FEV1 is unchanged from 2.53 L to 2.78 L. The total lung capacity is unchanged from 7.54 L to 7.37 L. The functional residual capacity is unchanged from 4.59 L to 4.07 L. The residual volume is unchanged from 7.73 L to 3.20 L. The absolute diffusion capacity is unchanged from 13.6 to 15.4. The diffusing capacity corrected for alveolar volume is unchanged from 3.08 to 2.90 Impression: There is a mild obstructive abnormality with a normal FEV1 and without significant improvement after inhaling a single dose of albuterol. lung volumes are normal. The absolute diffusion capacity is moderately decreased but normalizes when corrected for alveolar volume. When compared to previous pulmonary function test on 02/27/2020 there has been no significant change in the FVC, FEV1, total lung capacity, functional residual capacity, residual volume, absolute diffusion capacity and diffusing capacity corrected for alveolar volume. Clinical correlation is recommended.
== END 2020-09-25 07:37 | disposition home or self-care (01) ==
PROVIDERS: PCP Physician Assistant; Visit Provider Nurse Practitioner Family
DX: R06.02 Shortness of breath (principal)
CPT/HCPCS: 94060; 94726; 94729

== ENCOUNTER 2020-09-26 08:52 | Outpatient (CLI) | payer MEDICARE, SELFPAY ==
--- NOTE | ~2020-09-26 | US_ITS ---
EXAMINATION: US carotid duplex BI DATE: 09/26/2020 09:23 INDICATION: Carotid artery stenosis. TECHNIQUE: Grayscale, color Doppler, and pulsed Doppler images of the cervical carotid arteries were obtained. The degree of vessel stenosis is placed in one of the following categories: normal, <50%, 5 0-69%, >=70% but less than near-occlusion, near-occlusion, or total occlusion. Note that percent sten osis relative to normal distal artery lumen diameter is indirectly measured from velocity measurement s as described by Tyron, et al. Radiology 2003; [id number]. COMPARISON: Ultrasound 10/27/2019 FINDINGS: RIGHT: The right common carotid artery (CCA) peak systolic velocity (PSV) is 109 cm/s. The right internal ca rotid artery (ICA) PSV is 159 cm/s. The right ICA end-diastolic velocity (EDV) is 29 cm/s. The right ICA/CCA PSV ratio is 1.5. The ICA lumen is obscured by shadowing calcified plaque. There is antegrade flow in the right vertebral artery. LEFT: The left CCA PSV is 110 cm/s. The left ICA PSV is 128 cm/s. The left ICA EDV is 28 cm/s. The left ICA /CCA PSV ratio is 1.2. Grayscale and color Doppler images yield an estimate of <50% diameter reductio n from plaque in the ICA. There is antegrade flow in the left vertebral artery. IMPRESSION: 1. 50-69% stenosis in the right internal carotid artery. 2. <50% stenosis in the left internal carotid artery. Reviewed, dictated and finalized at location A.
== END 2020-09-26 08:53 | disposition home or self-care (01) ==
PROVIDERS: PCP Physician Assistant; Visit Provider Internal Medicine Cardiovascular Disease
DX: I65.23 Occlusion and stenosis of bilateral carotid arteries (principal); I77.9 Disorder of arteries and arterioles, unspecified
CPT/HCPCS: 93880

== ENCOUNTER → 2022-06-04 13:40 | Outpatient (CLI) | payer MEDICARE, SELFPAY ==
--- NOTE | ~2022-06-04 | XR_ITS ---
XR chest 2V 06/04/2022 14:00 Indication: Productive cough. History of cancer. Procedure: 2 view chest Comparison: Comparison to multiple prior studies sequentially, with oldest reviewed study dated 04/2019. Findings: Status post median sternotomy for CABG. Heart size. Calcified granulomas right upper thorax . There is chronic left apical pleural thickening. There is chronic left basilar atelectasis/scarring . No acute focal pneumonia, edema, significant effusion or pneumothorax. Impression: 1: No acute cardiopulmonary disease. Reviewed, dictated and finalized at location A. Impression: 1: No acute cardiopulmonary disease.
== END ==
PROVIDERS: PCP Nurse Practitioner Family; Visit Provider Nurse Practitioner Family
DX: R05.9 Cough, unspecified (principal); Z87.891 Personal history of nicotine dependence
CPT/HCPCS: 71046

== ENCOUNTER 2023-08-05 09:37 | Outpatient (CLI) | payer MEDICARE, SELFPAY ==
--- NOTE | ~2023-08-05 | US_ITS ---
EXAMINATION: US carotid duplex BI DATE: 08/05/2023 10:59 INDICATION: Carotid artery stenosis TECHNIQUE: Grayscale, color Doppler, and pulsed Doppler images of the cervical carotid arteries were obtained. The degree of vessel stenosis is placed in one of the following categories: normal, <50%, 5 0-69%, >=70% but less than near-occlusion, near-occlusion, or total occlusion. Note that percent sten osis relative to normal distal artery lumen diameter is indirectly measured from velocity measurement s as described by Tyron, et al. Radiology 2003; [id number]. COMPARISON: None. FINDINGS: RIGHT: The right common carotid artery (CCA) peak systolic velocity (PSV) is 122 cm/s. The right internal ca rotid artery (ICA) PSV is 104 cm/s. The right ICA end-diastolic velocity (EDV) is 21 cm/s. The right ICA/CCA PSV ratio is 0.9. Grayscale and color Doppler images yield an estimate of <50% diameter reduc tion from plaque in the ICA. The external carotid artery (ECA) PSV is 150 cm/s. There is antegrade fl ow in the right vertebral artery. LEFT: The left CCA PSV is 93 cm/s. The left ICA PSV is 96 cm/s. The left ICA EDV is 16 cm/s. The left ICA/C CA PSV ratio is 1.0. Grayscale and color Doppler images yield an estimate of <50% diameter reduction from plaque in the ICA. The ECA PSV is 114 cm/s. There is antegrade flow in the left vertebral artery . IMPRESSION: 1. <50% stenosis in the right internal carotid artery. 2. <50% stenosis in the left internal carotid artery. Reviewed, dictated and finalized at location A.
== END 2023-08-05 09:38 | disposition home or self-care (01) ==
PROVIDERS: PCP Nurse Practitioner Family; Visit Provider Internal Medicine Cardiovascular Disease
DX: I65.23 Occlusion and stenosis of bilateral carotid arteries (principal)
CPT/HCPCS: 93880